=== PATIENT | female | born 1960 | race Caucasian/White ===

== ENCOUNTER 2021-11-15 00:35 | Day surgery (SDC) | payer OTHER, SELFPAY ==
[2021-11-04 14:13] VITALS: BMI 31.3
--- NOTE | 2021-11-14 10:19 | P.PNAN_ITS ---
Anes - Eval Pre Procedure Procedure: Operation Date: 11/15/21 10:15 Proposed Procedures p Colonoscopy - Artemio Meyer MD Date/Time: 11/14/21 10:19 Surgeon: Betsy Pre Op Diagnosis: KERRI, melena Patient Data Age: 61 Gender: F Height: 1.68 m Weight: 88 kg Allergies Allergy/AdvReac Type Severity Reaction Status Date / Time No Known Allergies Allergy Unverified 12/18/12 14:32 Home Medications Medication Instructions Recorded Confirmed Type ferrous sulfate 325 mg PO DAILY 11/04/21 11/04/21 History no labs to view. referral from [place] indicates pt has anemia and pos occult stool Patient hx anesthesia problems: none Family hx anesthesia problems: none Results Review: All pre-operative results and documents have been reviewed as part of the pre-operative evaluation. [facility] Past Medical History Medical History Anemia Cluster headache Social History Social History Smoking status: Never smoker Substance use: never Living arrangements: alone Spiritual care concerns: No Exam Day of Procedure 11/14/21 10:19
--- NOTE | 2021-11-15 09:15 | WPDGICN ---
Assessment and Plan Assessment and plan (1) Occult blood positive stool: Code(s): R19.5 - Other fecal abnormalities Status: Acute Assessment and Plan: Colonoscopy with possible biopsy or polypectomy or cautery or injection of substances. (2) Anemia: Code(s): D64.9 - Anemia, unspecified Status: Acute GI Consult Note Consult date/time: 11/15/21 09:15 HPI: Malka Ac is a 61 year old female Referred because of anemia and blood in her stools-- She has a positive Hemoccult. She has Not seen zofia blood in her stools. A recent hemoglobin in emergency room revealed that her hemoglobin was 9.8. iron levels also were found to be low Review of Systems Review of Systems: All systems reviewed & are unremarkable except as noted in HPI and below PMFSH Past Medical History Medical History Anemia Cluster headache Social History Social History Smoking status: Never smoker Substance use: never Living arrangements: alone Spiritual care concerns: No Meds Home Medications and Allergies Home Medications Medication Instructions Recorded Confirmed Type ferrous sulfate 325 mg PO DAILY 11/04/21 11/04/21 History Allergies Allergy/AdvReac Type Severity Reaction Status Date / Time No Known Allergies Allergy Unverified 11/15/21 09:22 Exam Const: General: alert Orientation/consciousness: patient oriented x3 Resp: Auscultation: clear to auscultation bilaterally Cardio: Rhythm: regular rhythm GI: GI Palp: Yes Soft to palpation and No Tenderness to palpation present (GI) Neuro: General: patient oriented x3
[2021-11-15 09:23] VITALS: BP 129/79; PULSE 80; RESP 16; TEMP 36.6; O2SAT 100
--- NOTE | 2021-11-15 09:26 | WPDANESEFPP ---
Anes - Eval Final PreProcedure Day of Procedure 11/15/21 09:26 Patient weight: obese Heart: regular rate and rhythm Lungs: clear to auscultation and normal air movement Airway: Mallampati scale class II Neurological: alert and oriented Last oral intake: >/= 8 hours ASA classification: II Emergent: no Anesthetic plan: proceed Anesthesia type and monitoring: general GIVS and standard monitoring Results Review: All pre-operative results and documents have been reviewed as part of the pre-operative evaluation. Informed Consent: The patient's anesthetic plan and its attendant risks and benefits were discussed with the patient/family/POA. Questions were solicited and answers provided to the satisfaction of the patient/family/POA.
[2021-11-15] MEDS: LACTATED RINGERS 1,000 ML 150 ML IV CONT (09:35)
[2021-11-15 10:27] VITALS: BP 94/48; PULSE 67; RESP 23; O2SAT 96
[2021-11-15 10:37] VITALS: BP 105/55; PULSE 60; RESP 20; O2SAT 99
[2021-11-15 10:47] VITALS: BP 113/94; PULSE 68; RESP 24; O2SAT 100
== END 2021-11-15 10:52 | disposition home or self-care (01) ==
PROVIDERS: Visit Provider Internal Medicine Gastroenterology
PROC: 0DJD8ZZ Inspection of Lower Intestinal Tract, Via Natural or Artificial Opening Endoscopic (ICD-10-PCS; CPT 45378; principal; 2021-11-15 10:15)
DX: Z12.11 Encounter for screening for malignant neoplasm of colon (principal); C18.2 Malignant neoplasm of ascending colon; K57.30 Diverticulosis of large intestine without perforation or abscess without bleeding; E66.9 Obesity, unspecified; Z68.30 Body mass index [BMI] 30.0-30.9, adult; D64.9 Anemia, unspecified
CPT/HCPCS: 45380; 88305; J2704; J7120

== ENCOUNTER 2021-12-03 11:51 | Outpatient (CLI) | payer OTHER, SELFPAY ==
--- NOTE | 2021-12-03 12:59 | ECG_ITS ---
Measurements Intervals [place] Rate: 72 P: 38 AK: 152 QRS: 2 QRSD: 84 T: 30 QT: 366 QTc: 401 Interpretive Statements SINUS RHYTHM NONSPECIFIC T-WAVE ABNORMALITY LOW VOLTAGE ABNORMAL ECG NO PREVIOUS ECG AVAILABLE FOR COMPARISON Electronically Signed On 12-03-2021 16:28:22 CDT by Francisco Franklin M.D.
[2021-12-03 13:23] LABS: Basophils Absolute Auto 0.1 K/mm3 (0.0-0.1); Basophils Percent Auto 1.7 % (0.2-1.2); Eosinophils Absolute Auto 0.1 K/mm3 (0-0.3); Eosinophils Percent Auto 1.8 % (0-4.4); Hematocrit 32.1 % (37.0-47.0); Hemoglobin 9.7 g/dL (12.0-15.0); Immature Granulocyte Absolute 0.02 K/mm3 (0.00-0.031); Immature Granulocyte Percent A 0.3 % (0-0.5); Lymphocytes Absolute Auto 2.13 K/mm3 (0.9-3.2); Lymphocytes Percent Auto 32.6 % (18.3-44.2); Mean Corpuscular HGB Conc 30.2 g/dl (32-36); Mean Corpuscular Hemoglobin 25.5 pg (26-34); Mean Corpuscular Volume 84.3 fl (80-100); Mean Platelet Volume 11.7 fl (7.4-10.4); Monocytes Absolute Auto 0.5 K/mm3 (0.1-0.6); Monocytes Percent Auto 7.4 % (2.6-8.5); Neutrophils Absolute Auto 3.7 K/mm3 (1.3-6.7); Neutrophils Percent Auto 56.2 % (45.5-73.1); Platelet Count Result 250 k/mm3 (150-375); Red Blood Count 3.81 M/mm3 (4.2-5.4); White Blood Count 6.5 K/mm3 (4.5-10.0)
[2021-12-03 13:29] LABS: Alanine Aminotransferase 14 U/L (4-35); Albumin Level 4.4 g/dL (3.5-5.1); Alkaline Phosphatase 63 U/L (38-126); Anion Gap 7 mmol/L (8-16); Aspartate Amino Transferase 24 U/L (14-36); Bilirubin,Total 0.2 mg/dL (0.2-1.3); Blood Urea Nitrogen 10 mg/dL (7-17); Calcium 8.7 mg/dL (8.4-10.2); Carbon Dioxide 27 mmol/L (22-30); Chloride 107 mmol/L (98-107); Estimated Glomerular Filt Rate > 60; Glucose 126 mg/dL (65-110); Potassium 3.7 mmol/L (3.4-5.0); Sodium 141 mmol/L (137-145)
[2021-12-03 13:58] LABS: Carcinoembryonic Antigen 6.7 ng/mL (0.0-3.0)
== END 2021-12-03 11:52 | disposition home or self-care (01) ==
PROVIDERS: Visit Provider Surgery
DX: Z01.818 Encounter for other preprocedural examination (principal); C18.2 Malignant neoplasm of ascending colon; R94.31 Abnormal electrocardiogram [ECG] [EKG]
CPT/HCPCS: 36415; 80053; 82378; 85025; 86850; 86900; 86901; 93005

== ENCOUNTER 2021-12-08 16:14 | Inpatient (IN) | payer OTHER, SELFPAY ==
--- NOTE | 2021-12-03 12:29 | PC.NURSE ---
Report to the Outpatient Waiting Room, entrance under the green pavilion located off [facility], at time __1000 on date ___12/08/21____. OR Time: __1199 . - You and your visitor will be asked a series of questions to screen for COVID 19 for your protection. - A mask is required within the hospital. Preoperative COVID Testing Requirements: No COVID Test needed if: (proof is required; if not received patient will have Rapid Test prior to entry) - Patient has received COVID Vaccine at least 14 days prior to procedure date or - Patient has positive COVID test result within last 90 days of surgery date. COVID Test needed if above criteria is not met If not COVID vaccinated a COVID test must be conducted within 72 hours of surgery and patient is asked to isolate self from time of testing until procedure. You will go to the [facility] for your COVID testing. The [facility] site is located at the corner of [address] [facility]. You will only be called if COVID results are positive and your surgeon may reschedule your elective surgery date. Patients may have clear liquids (water, carbonated beverages, clear teas, apple juice) until 3 hours prior to surgery with a maximum of 20 ounces. - No food from midnight until time of surgery - Infants may have breast milk until 4 hours before surgery, infant formula 6 hours prior to surgery. - Children will be allowed to drink immediately following surgery. If applicable, please bring a bottle or sippy cup to assist with drinking. Juice, water, soda, and popsicles are readily available. For infants on formula, please bring formula the day of surgery. Pacifiers are allowed. Take the following medications with a SIP of water the morning of surgery: NONE Medications to discontinue per physician ____ALL VITAMINS AND SUPPLEMENTS 3 DAYS PRE OP Date to take last dose__12/04/21 Please no make-up, nail chadian, hairspray, perfume, deodorant, or body powder the day of surgery. No jewelry (including any body piercings) or valuables the day of surgery, leave them at home. Please take a shower or bath the night before, or the morning of, surgery with an antibacterial soap. Wear comfortable, loose fitting clothing. Children are encouraged to wear pajamas. - Jewelry must be removed prior to entering the operating room. Rings and piercings that are not removed may be cut off. - The hospital will not accept responsibility for valuables. - Please leave all valuables, including medications, at home the day of surgery. If you are going home after surgery, a licensed hazmat cdl driver must drive you home. [employer] SHOWER DAY BEFORE SURGERY AND MORNING OF SURGERY - NO public transportation without another adult. - We recommend that an adult stay with you for 24 hours following discharge. - We also recommend that you do not drive, make important decision, drink alcoholic beverages, or take any drugs that were not prescribed by your health care provider for at least 24 hours after your discharge time. For Pediatric surgeries, we recommend two adults accompany the child home (only one inside the building at this time). One visitor will be allowed to accompany the patient into the hospital. Patients visitor will be instructed to remain with patient at all times or leave the building. We will allow the visitor to come back to the postoperative area when patient is ready. Follow any additional instructions given to you from your surgeon. VERBAL AND WRITTEN instructions given to _PATIENT and asked if any additional questions and then verbalized understanding. Patient advised to call surgeon office or pre surgery nurse liaison [phone] if any additional questions.
[2021-12-03 12:58] VITALS: BP 146/80; PULSE 79; RESP 18; TEMP 36.8; O2SAT 99; BMI 30.3
[2021-12-08] VITALS (14 sets, daily range): BP systolic 119–146; BP diastolic 60–90; PULSE 64–88; RESP 11–20; TEMP 36.1–37.2; O2SAT 94–100
[2021-12-08] MEDS: ACETAMINOPHEN 500 MG TABLET 1000 MG PO ×2 (10:33→18:09)
[2021-12-08] MEDS: LACTATED RINGERS 1,000 ML 30 ML IV CONT ×2 (10:49→14:53)
[2021-12-08] MEDS: KETOROLAC 15 MG/ML VIAL (*BKC) IV PUSH (10:50)
--- NOTE | 2021-12-08 11:04 | SUR.PREOP ---
pt informed slight delay in procedure.
--- NOTE | 2021-12-08 11:44 | WPDANESEPPF ---
Anes - Initial Pre Proc Eval Procedure: Operation Date: 12/08/21 12:00 Proposed Procedures p Laparoscopic Hand Assisted Right Hemicolectomy, Possible Open - Mao Coy DO Date/Time: 12/08/21 11:44 Surgeon: Mao Coy DO Pre Op Diagnosis: ascending colon cancer Patient Data Age: 61 Gender: F Height: 1.68 m Weight: 82.9 kg Last Vital Signs Temp 36.8 C 12/08/21 10:09 Pulse 81 12/08/21 10:09 Resp 16 12/08/21 10:09 BP 119/73 12/08/21 10:09 Pulse Ox 100 12/08/21 10:09 Allergies Allergy/AdvReac Type Severity Reaction Status Date / Time No Known Allergies Allergy Verified 12/08/21 10:23 Home Medications Medication Instructions Recorded Confirmed Type ferrous sulfate 325 mg PO DAILY 11/04/21 12/08/21 History cyanocobalamin (vitamin B-12) 1,000 mcg PO WEEKLY 12/03/21 12/08/21 History L.acidophilus-B.bifidum,longum 3 cap PO DAILY 12/08/21 12/08/21 History [Probiotic Colon Support] Venofer amp IV ONCE 12/08/21 History Patient hx anesthesia problems: none Family hx anesthesia problems: none Results Review: All pre-operative results and documents have been reviewed as part of the pre-operative evaluation. [facility] Past Medical History Medical History Anemia Cancer of ascending colon Cluster headache Surgical History Surgical History No pertinent past surgical history S/P tonsillectomy Family History Family History Father Heart attack Unknown Malignant neoplasm of prostate Social History Social History Smoking status: Never smoker Alcohol intake: never Substance use: never Living arrangements: with family Spiritual care concerns: No Anes - Eval Final PreProcedure Day of Procedure 12/08/21 11:44 Patient weight: overweight Heart: regular rate and rhythm Lungs: clear to auscultation Airway: Mallampati scale class II Neurological: alert and oriented Last oral intake: >/= 8 hours ASA classification: III Emergent: no Anesthetic plan: proceed Anesthesia type and monitoring: general ETT and standard monitoring Results Review: All pre-operative results and documents have been reviewed as part of the pre-operative evaluation. Informed Consent: The patient's anesthetic plan and its attendant risks and benefits were discussed with the patient/family/POA. Questions were solicited and answers provided to the satisfaction of the patient/family/POA.
--- NOTE | 2021-12-08 11:56 | WPDHPUPDATE1 ---
History and Physical Update Update Date/Time: 12/08/21 11:56 History and Physical has been reviewed, including an updated exam of the patient. There are NO changes in the patient's condition. Risks, benefits, and alternatives have been discussed and questions answered. Patient agrees to proceed with procedure.
[2021-12-08] MEDS: ceFAZolin 2 GM/D5W 50 ML 2 GM/50 ML BAG IVPB (12:44)
[2021-12-08] MEDS: metroNIDAZOLE 500 MG/ISO 100ML 500 MG/100 ML BAG 100 MG IVPB (12:49)
--- NOTE | 2021-12-08 14:49 | W.PM.PROC2 ---
Procedure Note - Detailed Date of Procedure 12/08/21 Pre-op Diagnosis ascending colon cancer Post-op Diagnosis Same Procedure Performed Hand assisted laparoscopic right hemicolectomy with ileocolic anastomosis Surgeon Mao Coy, DO Anesthesia General and Local (Exparel) Indications This is a 61-year-old woman who presented with a recent finding of ascending colon cancer. She was experiencing some weakness and easy fatigue, and was found to have evidence of iron deficiency anemia. A Hemoccult stool test was positive. She had never had a colonoscopy before. She underwent colonoscopy by Dr. Meyer on 11/15/2021. An ascending colon mass was identified and biopsied. Biopsies showed evidence of adenocarcinoma. She then had a CT chest, abdomen, and pelvis and [facility] and this showed no evidence of metastatic spread. Discussions were made with the patient about treatment options and decision was made to proceed with hand assisted laparoscopic right hemicolectomy, possible open. Findings Hand assisted laparoscopic right hemicolectomy was performed. Upon entering the abdomen laparoscopically, no immediate abnormalities were noted. I was then able to palpate the mass in the ascending colon and there did appear to be some omentum scarred up to the area where the mass was. A right hemicolectomy was performed to adequately resect the area with proximal and distal margins. A high ligation of the ileocolic vessels was performed and a medial to lateral dissection plane was created. The [id number] stapled anastomosis was performed and the anastomosis appeared healthy and viable. The righ colon was then sent to the lab for pathology. Description of Procedure Procedure as well as risks benefits and alternatives were explained to the patient. Written consent was obtained and placed in chart prior to procedure. Patient was brought back to surgical suite. She was placed supine on operating table. Time-out was done to confirm patient procedure. She was then intubated by the anesthesia department. Her abdomen was prepped and draped in sterile fashion using chlorhexidine prep. A 7 centimeter vertical incision was made just superior to the umbilicus using a 15 blade scalpel. Electrocautery was used for hemostasis and for dissection down through Sy's fascia. The linea alba was identified, and incised using electrocautery. Two Renny clamps were used to lift the fascia anteriorly, and the peritoneum was then entered using electrocautery. The abdomen was inspected and no acute abnormalities were noted. The wound protector was placed at this incision, and the GelPort was applied with a 5 millimeter port placed through it. Carbon dioxide insufflation was used to create a pneumoperitoneum. The camera was inserted and the abdominal cavity was inspected. The mass was palpated in the ascending colon, and no other abnormalities were noted. The patient was placed in Trendelenburg position and rotated slightly to the left. A 5 millimeter incision was made in the lower midline and a 5 millimeter trocar was inserted under direct visualization. Another 5 millimeter incision was made in the left lower quadrant, and a 5 millimeter trocar was inserted under direct visualization. A transversus abdominis plane block with Exparel was performed under laparoscopic visualization bilaterally. After carefully inspecting the abdominal cavity, I began my dissection from a medial to lateral direction along the ileocolic pedicle. The cecum was tented anteriorly and laterally and this allowed me to visualize the ileocolic pedicle. The medial side and inferior side of the peritoneum was scored using hook electrocautery and the retroperitoneal plane was entered. Careful dissection was performed using hook electrocautery in this relatively avascular plane. The duodenum was identified and swept posteriorly. I then continued to dissect proximally along the ileocolic pedicle.
[2021-12-08] MEDS: LACTATED RINGERS 1,000 ML 100 ML IV CONT (16:46)
[2021-12-09] MEDS: ACETAMINOPHEN 500 MG TABLET 1000 MG PO ×4 (00:01→17:54)
[2021-12-09] MEDS: LACTATED RINGERS 1,000 ML 100 ML IV CONT (04:00)
[2021-12-09 05:16] VITALS: BP 119/67; PULSE 61; RESP 16; TEMP 36.3; O2SAT 94
[2021-12-09 05:55] LABS: Basophils Percent Auto 0.2 % (0.2-1.2); Hematocrit 29.1 % (37.0-47.0); Hemoglobin 8.8 g/dL (12.0-15.0); Immature Granulocyte Absolute 0.06 K/mm3 (0.00-0.031); Immature Granulocyte Percent A 0.5 % (0-0.5); Lymphocytes Absolute Auto 0.83 K/mm3 (0.9-3.2); Lymphocytes Percent Auto 7.3 % (18.3-44.2); Mean Corpuscular HGB Conc 30.2 g/dl (32-36); Mean Corpuscular Hemoglobin 26.2 pg (26-34); Mean Corpuscular Volume 86.6 fl (80-100); Mean Platelet Volume 12.8 fl (7.4-10.4); Monocytes Absolute Auto 0.6 K/mm3 (0.1-0.6); Neutrophils Absolute Auto 9.9 K/mm3 (1.3-6.7); Platelet Count Result 222 k/mm3 (150-375); Red Blood Count 3.36 M/mm3 (4.2-5.4); Red Cell Distribution Width 17.9 % (11.5-14.5); White Blood Count 11.4 K/mm3 (4.5-10.0)
[2021-12-09 06:03] LABS: Anion Gap 7 mmol/L (8-16); Blood Urea Nitrogen 14 mg/dL (7-17); Calcium 8.6 mg/dL (8.4-10.2); Carbon Dioxide 24 mmol/L (22-30); Chloride 107 mmol/L (98-107); Estimated CRCL calculation 84 ml/min; Estimated Glomerular Filt Rate > 60; Glucose 143 mg/dL (65-110); Potassium 3.9 mmol/L (3.4-5.0); Sodium 138 mmol/L (137-145)
[2021-12-09] MEDS: ACIDOPHILUS/BULGARICUS CHEWABLE TABLET 3 TABLET PO (08:01)
[2021-12-09] MEDS: ENOXAPARIN 40 MG/0.4 ML SYRINGE SUB-Q (08:01)
--- NOTE | 2021-12-09 10:39 | WPDANESPN ---
Anes - Prog Note Post-Op Date/Time: 12/09/21 10:39 Cardiovascular status: normal Respiratory status: normal Airway patency: baseline Mental status: baseline Post-Op hydration status: normal Vital Signs: Last Vital Signs Temp 97.3 F L 12/09/21 05:16 Pulse 61 12/09/21 05:16 Resp 16 12/09/21 05:16 BP 119/67 12/09/21 05:16 Pulse Ox 94 12/09/21 05:16 Pain Score (VAS): 09/20 I/O: Intake & Output 12/08/21 12/09/21 12/09/21 23:59 07:59 15:59 Intake Total 700 1000 Balance 700 1000 Laboratory Tests 12/09/21 05:10 12/09/21 05:10 12/09/21 12/09/21 05:10 05:10 WBC 11.4 H RBC 3.36 L Hgb 8.8 L Hct 29.1 L MCV 86.6 MCH 26.2 MCHC 30.2 L RDW 17.9 H Plt Count 222 MPV 12.8 H Immature Gran % (Auto) 0.5 Neut % (Auto) 87.0 H Lymph % (Auto) 7.[address] [place] % (Auto) 5.0 Eos % (Auto) 0.0 Baso % (Auto) 0.2 Lymph # (Auto) 0.[address] [place] # (Auto) 0.6 Eos # (Auto) 0.0 Baso # (Auto) 0.0 Abs Immat Gran (auto) 0.06 H Absolute Neuts (auto) 9.9 H Absolute Nucleated RBC 0.0 Nucleated RBC % 0.0 Sodium 138 Potassium 3.9 Chloride 107 Carbon Dioxide 24 Anion Gap 7 L BUN 14 Creatinine 0.70 Estim Creat Clear Calc 84 Estimated GFR > 60 Glucose 143 H Calcium 8.6 Post-procedural complaints: none Patient Feedback: Patient satisfied with anesthetic care.
--- NOTE | 2021-12-09 10:52 | PM.PNGS ---
Progress Note: A&P Assessment and Plan (1) Neoplasm of ascending colon: Code(s): D49.0 - Neoplasm of unspecified behavior of digestive system Status: Acute Assessment and Plan: Patient vegan and brought in her own food/drinks from home. Okay to start advancing to full liquids. Stop IV fluids. Encouraged increasing activity, walking in the halls. Pathology pending. Repeat labs tomorrow. Additional Plan I have discussed the patient's case and plan of care with Dr. Coy. Subjective Subjective Date/Time Seen: 12/09/21 10:52 Post Op day: 1 (ALEJANDRO right hemicolectomy) Patient reports: voiding w/o difficulty and afebrile Interval history: Patient seen and examined, chart reviewed. She is primarily complaining of bloating and discomfort from the distention this morning. Not passing much gas but did have a slight amount of liquid stool this morning. Denies nausea or vomiting. Has only walked in the room, but is planning to try and walk the halls this morning. Pain being controlled with acetaminophen. She is tolerating the clear liquids (she is vegan and has brought her own food/drinks). Review of Systems Review of Systems: All systems reviewed & are unremarkable except as noted in HPI and below Exam Const: General: comfortable and no acute distress Orientation/consciousness: patient oriented x3 Resp: Effort & Inspection: normal respiratory effort Auscultation: clear to auscultation bilaterally Cardio: Rate: regular rate Rhythm: regular rhythm GI: Inspection: incision (Abdominal incisions clean and dry) and other (mildly distended) GI Palp: Yes Soft to palpation, Yes Tenderness to palpation present (GI) (incisional) and No Guarding due to palpation present (GI) Auscultation: normal bowel sounds Neuro: General: no focal motor deficits Extrem: General: no calf tenderness and no edema Psych: Insight: Good insight present (Psych) Judgement: Good judgement present (Psych) Objective Data Vital Signs Vital Signs: Vital Signs - 24 hr 12/08/21 14:53 12/08/21 15:00 12/08/21 15:15 Temperature 98.9 F Pulse Rate 84 85 77 Respiratory Rate 11 L 14 12 Blood Pressure 134/80 133/75 133/78 Pulse Oximetry 100 100 100 12/08/21 15:30 12/08/21 15:45 12/08/21 16:00 Temperature Pulse Rate 65 73 77 Respiratory Rate 12 16 20 Blood Pressure 140/78 146/84 H 136/90 Pulse Oximetry 100 97 96 12/08/21 16:10 12/08/21 16:25 12/08/21 16:45 Temperature 97.9 F 97.9 F Pulse Rate 77 72 77 Respiratory Rate 20 16 16 Blood Pressure 141/77 H 140/79 130/76 Pulse Oximetry 95 94 95 12/08/21 17:15 12/08/21 18:15 12/08/21 20:36 Temperature 98.2 F 98.2 F 97.3 F L Pulse Rate 80 88 84 Respiratory Rate 18 18 18 Blood Pressure 121/61 128/79 127/68 Pulse Oximetry 97 96 97 12/08/21 23:58 12/09/21 05:16 Temperature 97 F L 97.3 F L Pulse Rate 64 61 Respiratory Rate 16 16 Blood Pressure 124/60 119/67 Pulse Oximetry 96 94 Intake/Output Intake/Output: Intake & Output 12/06/21 12/07/21 12/08/21 12/09/21 23:59 23:59 23:59 23:59 Intake Total 850 1000 Output Total 200 Balance 650 1000 Meds/Results Medications: Active Medications Generic Name Dose Route Start Last Admin Trade Name Freq PRN Reason Stop Dose Admin Acetaminophen 1,000 mg 12/08/21 18:00 12/09/21 06:26 Acetaminophen 500 Mg Tablet PO 1,000 mg Q6HR HANNA Administration Enoxaparin Sodium 40 mg 12/09/21 09:00 12/09/21 08:01 Enoxaparin 40 Mg/0.4 Ml Syringe SUB-Q 40 mg DAILY HANNA Administration Lactated Ringer's 1,000 mls @ 100 mls/hr 12/08/21 16:14 12/09/21 04:00 Lr - Lactated Ringers Iv IV CONT 100 mls/hr .Q10H HANNA Administration Lactobacillus Acidophilus 3 tablet 12/09/21 09:00 12/09/21 08:01 Acidophilus/Bulgaricus Chewable Tablet PO 01/08/22 08:59 3 tablet DAILY HANNA Administration Morphine Sulfate 2 mg 12/08/21 16:14 Morphine Sulfate (*Crx) 2 Mg/Ml Inj IV PUSH Q2H PRN Júnior
[2021-12-09 12:15] VITALS: BP 127/60; PULSE 62; RESP 20; TEMP 36.3; O2SAT 98
[2021-12-09 17:37] VITALS: BP 123/51; PULSE 71; RESP 20; TEMP 37; O2SAT 97
[2021-12-09 20:00] VITALS: PULSE 63; RESP 16; O2SAT 98
[2021-12-09 21:00] VITALS: BP 132/65; PULSE 63; RESP 16; TEMP 36.7; O2SAT 98
[2021-12-10] MEDS: ACETAMINOPHEN 500 MG TABLET 1000 MG PO ×5 (00:07→23:45)
[2021-12-10 06:00] VITALS: BP 121/66; PULSE 65; RESP 16; TEMP 36.9; O2SAT 96
[2021-12-10 06:07] LABS: Hematocrit 26.9 % (37.0-47.0); Immature Platelet Fraction Pct 11.7 % (0.9-11.2); Mean Corpuscular HGB Conc 29.7 g/dl (32-36); Mean Corpuscular Hemoglobin 26.1 pg (26-34); Mean Corpuscular Volume 87.9 fl (80-100); Mean Platelet Volume 13.6 fl (7.4-10.4); Platelet Count Result 187 k/mm3 (150-375); Red Blood Count 3.06 M/mm3 (4.2-5.4); Red Cell Distribution Width 18.7 % (11.5-14.5); White Blood Count 9.4 K/mm3 (4.5-10.0)
[2021-12-10 06:24] LABS: Anion Gap 3 mmol/L (8-16); Blood Urea Nitrogen 13 mg/dL (7-17); Calcium 8.3 mg/dL (8.4-10.2); Carbon Dioxide 27 mmol/L (22-30); Chloride 109 mmol/L (98-107); Estimated CRCL calculation 75 ml/min; Estimated Glomerular Filt Rate > 60; Glucose 99 mg/dL (65-110); Potassium 3.8 mmol/L (3.4-5.0); Sodium 139 mmol/L (137-145)
[2021-12-10 07:46] LABS: Lymphocytes Absolute Manual 0.84 K/mm3 (1.1-4.5); Monocytes Absolute Manual 0.47 K/mm3 (0.1-0.90); Monocytes Percent Manual 5 % (3-9); Neutrophils Percent Manual 86 % (46-73); Platelet Estimate Adequate (Adequate); Total Cells Counted 100
[2021-12-10 07:47] LABS: Anisocytosis 1+ (NORMAL); Ovalocytes 1+ (NORMAL)
[2021-12-10] MEDS: ACIDOPHILUS/BULGARICUS CHEWABLE TABLET 3 TABLET PO (09:10)
[2021-12-10] MEDS: ENOXAPARIN 40 MG/0.4 ML SYRINGE SUB-Q (09:11)
--- NOTE | 2021-12-10 11:46 | PM.PNGS ---
Progress Note: A&P Assessment and Plan (1) Neoplasm of ascending colon: Code(s): D49.0 - Neoplasm of unspecified behavior of digestive system Status: Acute Assessment and Plan: Final pathology still pending Continue advancing diet and activity as tolerated Will probably discharge tomorrow if continuing to improve (2) Anemia: Qualifiers: Anemia type: iron deficiency Iron deficiency anemia type: chronic blood loss Qualified Code(s): D50.0 - Iron deficiency anemia secondary to blood loss (chronic) Code(s): D64.9 - Anemia, unspecified Status: Acute Assessment and Plan: Iron infusion today. No signs of active bleeding. Subjective Subjective Date/Time Seen: 12/10/21 11:46 Interval history: Bowels moving. Tolerating soft diet. Still having moderate pain but only taking Tylenol. Exam GI: Inspection: non-distended and incision (intact with glue) GI Palp: Yes Soft to palpation and Yes Tenderness to palpation present (GI) (incisional) Auscultation: normal bowel sounds Objective Data Vital Signs Vital Signs: Vital Signs - 24 hr 12/09/21 12:15 12/09/21 17:37 12/09/21 20:00 Temperature 36.3 C L 37.0 C Pulse Rate 62 71 63 Respiratory Rate 20 20 16 Blood Pressure 127/60 123/51 L Pulse Oximetry 98 97 98 12/09/21 21:00 12/10/21 06:00 Temperature 36.7 C 36.9 C Pulse Rate 63 65 Respiratory Rate 16 16 Blood Pressure 132/65 121/66 Pulse Oximetry 98 96 Intake/Output Intake/Output: Intake & Output 12/07/21 12/08/21 12/09/21 12/10/21 23:59 23:59 23:59 23:59 Intake Total 850 3250 250 Output Total 200 1000 350 Balance 650 2250 -100 Meds/Results Medications: Active Medications Generic Name Dose Route Start Last Admin Trade Name Freq PRN Reason Stop Dose Admin Acetaminophen 1,000 mg 12/08/21 18:00 12/10/21 06:05 Acetaminophen 500 Mg Tablet PO 1,000 mg Q6HR HANNA Administration Enoxaparin Sodium 40 mg 12/09/21 09:00 12/10/21 09:11 Enoxaparin 40 Mg/0.4 Ml Syringe SUB-Q 40 mg DAILY HANNA Administration Lactobacillus Acidophilus 3 tablet 12/09/21 09:00 12/10/21 09:10 Acidophilus/Bulgaricus Chewable Tablet PO 01/08/22 08:59 3 tablet DAILY HANNA Administration Morphine Sulfate 2 mg 12/08/21 16:14 Morphine Sulfate (*Crx) 2 Mg/Ml Inj IV PUSH Q2H PRN Pain Rated 4-6 Morphine Sulfate 4 mg 12/08/21 16:14 Morphine Sulfate (*Crx) 4 Mg/Ml Inj IV PUSH Q2H PRN Pain Rated 7-10 Ondansetron HCl 4 mg 12/08/21 16:14 Ondansetron Inj 4 Mg/2 Ml Vial IV PUSH Q4H PRN Nausea And Vomiting Oxycodone HCl 2.5 mg 12/08/21 16:14 Oxycodone Hcl (*Crx) 2.5 Mg Tab Ir PO Q4H PRN Pain Rated 4-6 Oxycodone HCl 5 mg 12/08/21 16:14 Oxycodone Hcl (*Crx) 5 Mg Tab Ir PO Q4H PRN Pain Rated 7-10 Labs Labs: Laboratory Results - last 24 hr 12/10/21 12/10/21 05:11 05:11 WBC 9.4 RBC 3.06 L Hgb 8.0 L Hct 26.9 L MCV 87.9 MCH 26.1 MCHC 29.7 L RDW 18.7 H Plt Count 187 MPV 13.6 H Immature Gran % (Auto) Not Reportable Neut % (Auto) Not Reportable Lymph % (Auto) Not Reportable [place] % (Auto) Not Reportable Eos % (Auto) Not Reportable Baso % (Auto) Not Reportable Lymph # (Auto) Not Reportable [place] # (Auto) Not Reportable Eos # (Auto) Not Reportable Baso # (Auto) Not Reportable Abs Immat Gran (auto) Not Reportable Absolute Neuts (auto) Not Reportable Absolute Nucleated RBC Not Reportable Total Counted 100 Neutrophils % (Manual) 86 H Lymphocytes % (Manual) 9.0 L Monocytes % (Manual) 5 Nucleated RBC % Not Reportable Abs Lymphs (Manual) 0.84 L Abs Monocytes (Manual) 0.47 Platelet Estimate Adequate % Immature Plt Fraction 11.7 H Anisocytosis 1+ Ovalocytes 1+ Sodium 139 Potassium 3.8 Chloride 109 H Carbon Dioxide 27 Anion Gap 3 L BUN 13 Creatinine 0.80 Estim Creat Clear Calc 75 Estimated
[2021-12-10 14:05] VITALS: BP 109/57; PULSE 66; RESP 18; TEMP 36.7; O2SAT 97
[2021-12-10] MEDS: IRON SUCROSE COMPLEX 100 MG in SODIUM CHLORIDE 0.9% IV 50 ML 220 MG IVPB (14:39)
[2021-12-10 20:00] VITALS: PULSE 68; RESP 16; O2SAT 94
[2021-12-10 20:09] VITALS: BP 119/64; PULSE 68; RESP 16; TEMP 36.4; O2SAT 94
[2021-12-11 04:42] VITALS: BP 121/63; PULSE 74; RESP 16; TEMP 36.2; O2SAT 100
[2021-12-11 05:59] LABS: Hemoglobin 8.6 g/dL (12.0-15.0); Mean Corpuscular HGB Conc 29.7 g/dl (32-36); Mean Corpuscular Hemoglobin 26.9 pg (26-34); Mean Corpuscular Volume 90.6 fl (80-100); Mean Platelet Volume 12.7 fl (7.4-10.4); Platelet Count Result 202 k/mm3 (150-375); Red Cell Distribution Width 18.6 % (11.5-14.5); White Blood Count 8.1 K/mm3 (4.5-10.0)
[2021-12-11] MEDS: ACETAMINOPHEN 500 MG TABLET 1000 MG PO ×2 (06:14→12:13)
[2021-12-11 06:15] LABS: Anion Gap 4 mmol/L (8-16); Blood Urea Nitrogen 13 mg/dL (7-17); Calcium 8.3 mg/dL (8.4-10.2); Carbon Dioxide 27 mmol/L (22-30); Chloride 108 mmol/L (98-107); Estimated CRCL calculation 84 ml/min; Estimated Glomerular Filt Rate > 60; Glucose 99 mg/dL (65-110); Potassium 3.6 mmol/L (3.4-5.0); Sodium 139 mmol/L (137-145)
[2021-12-11] MEDS: ACIDOPHILUS/BULGARICUS CHEWABLE TABLET 3 TABLET PO (09:05)
--- NOTE | 2021-12-11 11:53 | PM.DS ---
DS: Admitting Diagnosis Discharge Date 12/11/2021 Admitting Diagnosis Right colon cancer DS: Discharge Diagnosis Discharge Diagnosis (1) Neoplasm of ascending colon: Code(s): D49.0 - Neoplasm of unspecified behavior of digestive system Status: Acute Assessment and Plan: status post hand assisted laparoscopic right colectomy, doing well, continue routine postoperative care, path reviewed, home with p.o. analgesia and Colace, follow up 2 weeks (2) Obesity (BMI 30-39.9): Code(s): E66.9 - Obesity, unspecified Status: Acute Assessment and Plan: lifestyle and dietary modifications (3) Anemia: Qualifiers: Anemia type: iron deficiency Iron deficiency anemia type: chronic blood loss Qualified Code(s): D50.0 - Iron deficiency anemia secondary to blood loss (chronic) Code(s): D64.9 - Anemia, unspecified Status: Acute DS: Summary Hospital Course Reason for hospitalization: right colon cancer Hospital Course: The patient is a 61-year-old female presenting with right colon cancer. The patient underwent hand assisted laparoscopic right colectomy by Dr. Coy on 12/08/2021, please see full operative report for details of that procedure. Postoperative, the patient did well and was transferred to the surgical floor. Over the next few days, the patient has been ambulating well. Her diet has been slowly advanced and at discharge she was tolerating a regular diet. The patient had some bowel function prior to discharge. I also reviewed her pathology with her prior to discharge. The patient will be sent home with p.o. analgesia, Colace and follow-up with Dr. Coy in 2 weeks. Status at Discharge Functional status at discharge: independent ambulation Overall status at discharge: patient is progressing back to baseline Time Spent with Patient Time attestation: Total time spent providing and/or coordinating discharge services: Time spent: Less than 30 minutes Exam Const: General: cooperative, comfortable and no acute distress Nutritional Appearance: overweight Orientation/consciousness: patient oriented x3 Resp: Auscultation: clear to auscultation bilaterally Cardio: Rate: regular rate Rhythm: regular rhythm GI: Inspection: normal to inspection, non-distended and incision GI Palp: Yes Soft to palpation, Yes Tenderness to palpation present (GI), No Guarding due to palpation present (GI) and No Rigid due to palpation DS: Data Data Completed and Pending Completed studies during hospitalization: Pending at discharge 12/08/21 14:05 Surgical [PTH] Routine Labs on day of discharge: Labs from last 24 hours 12/11/21 12/11/21 05:27 05:27 WBC 8.1 RBC 3.20 L Hgb 8.6 L Hct 29.0 L MCV 90.6 MCH 26.9 MCHC 29.7 L RDW 18.6 H Plt Count 202 MPV 12.7 H Sodium 139 Potassium 3.6 Chloride 108 H Carbon Dioxide 27 Anion Gap 4 L BUN 13 Creatinine 0.70 Estim Creat Clear Calc 84 Estimated GFR > 60 Glucose 99 Calcium 8.3 L Discharge Plan Discharge Attending physician on discharge: Mao Coy Discharging Clinician: Mary Turner Anticipated Discharge Date/Time: 12/11/21 11:50 Patient Disposition: Home, Self-Care Activity: may shower and no straining Diet: as tolerated Wound Care Instructions: incision open to air Patient Instructions: Antibiotic Form Stand Alone Forms: General Discharge Information Follow-up/Referrals: Mao Coy DO [Physician] - 2 Weeks Discharge Medications: New hydrocodone-acetaminophen 5-325 mg tablet 1 tablet PO Q6H PRN (Reason: pain) Qty: 20 RF: 0 docusate sodium [Colace] 100 mg capsule 100 mg PO BID Qty: 20 RF: 0 Continued ferrous sulfate 325 mg (65 mg iron) Tablet 325 mg PO DAILY RF: 0 cyanocobalamin (vitamin B-12) 1,000 mcg Tablet 1,000 mcg PO WEEKLY RF: 0 Probiotic Colon Support 240 mg (3 billion cell) Capsule
== END 2021-12-11 12:42 | disposition home or self-care (01) | DRG 331 ==
LOC: ANH3MED 16:15
PROVIDERS: Nurse Practitioner Family; Admitting Provider Surgery; Visit Provider Surgery
PROC: 0DTF4ZZ Resection of Right Large Intestine, Percutaneous Endoscopic Approach (ICD-10-PCS; CPT 44204; principal; 2021-12-08 12:00)
DX: C18.2 Malignant neoplasm of ascending colon (principal); D50.0 Iron deficiency anemia secondary to blood loss (chronic); E66.9 Obesity, unspecified; Z68.31 Body mass index [BMI] 31.0-31.9, adult
CPT/HCPCS: 36415; 80048; 85025; 85027; 85055; 88309; A9270; C9290; J0330; J0690; J1100; J1170; J1650; J1756; J1885; J2250; J2405; J2704; J2710; J3010; J7030; J7120

== ENCOUNTER 2022-09-26 00:07 | Day surgery (SDC) | payer OTHER, SELFPAY ==
--- NOTE | 2022-09-14 10:17 | SUR.PREOP ---
Report to the Outpatient Waiting Room, entrance under the green pavilion located off [facility], at time 0830 on date 09/26/22. Needle Loc Time: 0930 Planned Procedure Time: 1200. Time changes happen often and if your time is changed the preop area will call you the afternoon before. - You and your visitor will be asked to self-screen and do not enter if you have any COVID symptoms. - Only one visitor is requested with a max of two and NO children visitors are allowed at this time. - The patient visitor may be requested to leave or wait in car when not with patient due to distancing restrictions. - A mask is optional within the hospital. Patients may have clear liquids (water, carbonated beverages, clear teas, apple juice) until 3 hours prior to surgery with a maximum of 20 ounces. - No clear liquids after 0730 - No food from midnight until time of surgery - Infants may have breast milk until 4 hours before surgery, infant formula 6 hours prior to surgery. - Children will be allowed to drink immediately following surgery. If applicable, please bring a bottle or sippy cup to assist with drinking. Juice, water, soda, and popsicles are readily available. For infants on formula, please bring formula the day of surgery. Pacifiers are allowed. Medications to discontinue per physician Instructed by Dr Coy to stop [place] 3 09/23/22. Instructed patient to stop vitamins & supplements 3 days before surgery 09/23/22 per Anesthesia Please no make-up, nail surinamese, hairspray, perfume, deodorant, or body powder the day of surgery. No jewelry (including any body piercings) or valuables the day of surgery, leave them at home. Please take a shower or bath the night before, or the morning of, surgery with Hibiclens soap. Wear comfortable, loose fitting clothing. Children are encouraged to wear pajamas. - Jewelry must be removed prior to entering the operating room. Rings and piercings that are not removed may be cut off. - The hospital will not accept responsibility for valuables. - Please leave all valuables, including medications, at home the day of surgery. If you are going home after surgery, a licensed courier delivery driver must drive you home. - NO public transportation without another adult if you receive anesthesia. - We recommend that an adult stay with you for 24 hours following discharge. - We also recommend that you do not drive, make important decision, drink alcoholic beverages, or take any drugs that were not prescribed by your health care provider for at least 24 hours after your discharge time. For Pediatric surgeries, we recommend two adults accompany the child home. Follow any additional instructions given to you from your surgeon. If you or anyone in your household have experienced Covid symptoms in the past week, please notify your surgeon or the nurse liaison at the phone number below for possible testing. Telephone instructions given to Malka Ac and asked if any additional questions and then verbalized understanding. Patient advised to call surgeon office or pre surgery nurse liaison [phone] if any additional questions.
[2022-09-14 10:31] VITALS: BMI 22.6
--- NOTE | ~2022-09-26 | MMUS_ITS ---
EXAMINATION: US breast needle loc RT, MM surgical specimen RT INDICATION: Patient presents for surgical excision of a right breast biopsy marker and fibroadenoma. TECHNIQUE: Patient presents for removal of a right breast fibroadenoma which demonstrated slight incr ease in size on interval six month postbiopsy mammogram. In addition, patient was advised by a holist medicine provider that she should have the biopsy marker removed from her breast. The provider als o advised that she avoid ionizing radiation. Therefore, the patient desires to have the mass and biop sy marker localized by ultrasound. I had an extensive discussion with the patient regarding the limit ations of ultrasound-guided localization of the marker and possibility that the marker, which is not sonographically detected, could remain in the breast. Patient confirmed understanding of the limitati ons and indicated that she preferred to proceed with attempted ultrasound localization rather than ma mmographic localization of the marker. The procedure for a ultrasound -guided needle localization was discussed with the patient's. Risks and benefits were detailed, including risks of bleeding and infe ction. The patient verbalized understanding and agreed to proceed. The time out was performed to verify the patient's name, date of , and site of procedure. The sk in overlying the right breast was prepared in usual fashion. Utilizing ultrasound guidance, a needle was advanced into the right breast. Confirmation of position of the wire was performed with holaoun d. The patient tolerated procedure without immediate complication. A specimen radiograph was performed. FINDINGS: Ultrasound confirmation of the right breast demonstrate a needle with tip adjacent to right breast mass. The right breast mass and biopsy marker are contained within the surgical specimen. IMPRESSION: 1. Successful ultrasound-guided right breast needle localization. Reviewed, dictated and finalized at location A. BALL INSPECTOR IMPRESSION: 1. Successful ultrasound-guided right breast needle localization.
--- NOTE | 2022-09-26 09:40 | SUR.PREOP ---
PT INITIALLY SHOWED UP AT 0830, WE PLACED HER IN ROOM 17, GOING TO ULTRASOUND, PLAN TO RETURN TO PREOP 7.
--- NOTE | 2022-09-26 10:11 | P.PNAN_ITS ---
Anes - Initial Pre Proc Eval Procedure: Operation Date: 09/26/22 12:00 Proposed Procedures p Right Breast Excisional Biopsy with Ultrasound and/or Mammogram Guided Needle Localization - Mao Coy DO Date/Time: 09/26/22 10:11 Surgeon: Mao Coy DO Pre Op Diagnosis: Right Breast Fibroadenoma Patient Data Age: 62 Gender: F Height: 1.68 m Weight: 63.8 kg Allergies Allergy/AdvReac Type Severity Reaction Status Date / Time No Known Allergies Allergy Verified 09/14/22 09:52 Home Medications Medication Instructions Recorded Confirmed Type melatonin 10 mg tablet 40 mg PO QHS 06/07/22 09/14/22 History magnesium malate, chelate 600 mg PO BID 06/17/22 09/14/22 History turmeric 400 mg capsule 800 mg PO TID 06/17/22 09/14/22 History zinc acetate 25 mg (zinc) capsule 25 mg PO BID 06/17/22 09/14/22 History acidophilus 25 million 2 tablet PO TID 09/14/22 09/14/22 History cell-pectin, citrus 100 mg tablet omega-3 fatty acids 2,000 mg PO DAILY 09/14/22 09/14/22 History vitamin A 25,000 unit capsule 25,000 cap PO DAILY 09/14/22 09/14/22 History Patient hx anesthesia problems: none Family hx anesthesia problems: none Results Review: All pre-operative results and documents have been reviewed as part of the pre- operative evaluation. [facility]LY [facility] Past Medical History Medical History (Updated 09/26/22 @ 11:15 by Chito Benavides DO) Anemia Cancer of ascending colon Cluster headache Fungal infection of lung Hypothyroidism Left adrenal mass Perianal fistula Surgical History Surgical History H/O hemicolectomy ALEJANDRO R HEMICOLECTOMY 12/08/21 S/P tonsillectomy Family History Family History Father Heart attack Grandparent Malignant neoplasm of prostate Social History Social History Smoking status: Never smoker Alcohol intake: never Substance use: never Living arrangements: with family Spiritual care concerns: No Anes - Eval Final PreProcedure Day of Procedure 09/26/22 10:11 Patient weight: normal Heart: regular rate and rhythm Lungs: clear to auscultation Airway: Mallampati scale class II Neurological: alert and oriented Last oral intake: >/= 8 hours ASA classification: III Emergent: no Anesthetic plan: proceed Anesthesia type and monitoring: general LMA and standard monitoring Results Review: All pre-operative results and documents have been reviewed as part of the pre- operative evaluation. Informed Consent: The patient's anesthetic plan and its attendant risks and benefits were discussed with the patient/family/POA. Questions were solicited and answers provided to the satisfaction of the patient/family/POA.
[2022-09-26 10:30] VITALS: BP 149/83; PULSE 69; RESP 16; TEMP 36.6; O2SAT 100
--- NOTE | 2022-09-26 11:48 | WPDHPUPDATE1 ---
History and Physical Update Update Date/Time: 09/26/22 11:48 History and Physical has been reviewed, including an updated exam of the patient. There are NO changes in the patient's condition. Risks, benefits, and alternatives have been discussed and questions answered. Patient agrees to proceed with procedure.
--- NOTE | 2022-09-26 11:49 | PM.IMHP ---
H&P: HPI History of Present Illness Date/Time: 09/26/22 11:49 Chief Complaint: abnormal mammogram Narrative: 62 yo woman presents for right breast u/s guided wire localized lumpectomy. She denies any changes since last seen in office. Review of Systems Review of Systems: All systems reviewed & are unremarkable except as noted in HPI and below Constitutional: Constitutional: Denies chills, Denies fever(s), Denies headache(s) and Denies weight loss Eyes: Eyes: Denies change in vision ENT: Denies dizziness, Denies headache(s), Denies neck mass and Denies throat swelling Cardiovascular: Cardiovascular: Denies chest pain, Denies lightheadedness and Denies dyspnea Respiratory: Respiratory: Denies cough, Denies dyspnea and Denies wheezing Gastrointestinal: Gastrointestinal: Denies abdominal pain, Denies change in bowel habits, Denies nausea and Denies vomiting Genitourinary: Genitourinary: Denies hematuria and Denies dysuria Musculoskeletal: Musculoskeletal: Reports as per HPI Integumentary/Breasts: Skin/Breast: Reports as per HPI Neurologic: Denies dizziness and Denies headache(s) Allergic/Immunologic: Allergic/Immunologic: Denies throat swelling and Denies wheezing PMF Past Medical History Medical History (Updated 09/26/22 @ 11:15 by Chito Benavides DO) Anemia Cancer of ascending colon Cluster headache Fungal infection of lung Hypothyroidism Left adrenal mass Perianal fistula Surgical History Surgical History H/O hemicolectomy ALEJANDRO R HEMICOLECTOMY 12/08/21 S/P tonsillectomy Family History Family History Father Heart attack Grandparent Malignant neoplasm of prostate Social History Social History Smoking status: Never smoker Alcohol intake: never Substance use: never Living arrangements: with family Spiritual care concerns: No Meds Home Medications and Allergies Home Medications Medication Instructions Recorded Confirmed Type melatonin 10 mg tablet 40 mg PO QHS 06/07/22 09/14/22 History magnesium malate, chelate 600 mg PO BID 06/17/22 09/14/22 History turmeric 400 mg capsule 800 mg PO TID 06/17/22 09/14/22 History zinc acetate 25 mg (zinc) capsule 25 mg PO BID 06/17/22 09/14/22 History acidophilus 25 million 2 tablet PO TID 09/14/22 09/14/22 History cell-pectin, citrus 100 mg tablet omega-3 fatty acids 2,000 mg PO DAILY 09/14/22 09/14/22 History vitamin A 25,000 unit capsule 25,000 cap PO DAILY 09/14/22 09/14/22 History Allergies Allergy/AdvReac Type Severity Reaction Status Date / Time No Known Allergies Allergy Verified 09/14/22 09:52 Vital Signs Vital Signs - 24 hr 09/26/22 10:30 Temperature 36.6 C Pulse Rate 69 Respiratory Rate 16 Blood Pressure 149/83 H Pulse Oximetry 100 Oxygen Delivery Room Air Exam Const: General: no acute distress and alert Orientation/consciousness: patient oriented x3 HENMT: Head: normocephalic and atraumatic Ears: hearing grossly normal bilaterally Face/Nose/Sinus: Normal nares present Mouth: Yes Normal oral and palatal mucosa present Eyes: Periorbital: periorbital findings normal Sclera: sclerae normal EOM: EOMs intact bilaterally Neck: Neck: normal visual inspection, no lymphadenopathy and trachea midline Chest: Chest palpation & inspection: normal inspection of the chest Resp: Effort & Inspection: normal respiratory effort Auscultation: clear to auscultation bilaterally Cardio: Jugular venous distension: no JVD Rate: regular rate Rhythm: regular rhythm Heart sounds: S1 normal heart sound present and S2 normal heart sound present Peripheral pulses: Peripheral pulses 2+ throughout GI: Inspection: normal to inspection GI Palp: Yes Soft to palpation, No Tenderness to palpation present (GI), No Guarding due to palpation present (GI)
[2022-09-26] MEDS: LACTATED RINGERS 1,000 ML 30 ML IV CONT (12:26)
--- NOTE | 2022-09-26 12:27 | SUR.OPER ---
Right Breast Excisional Biopsy sent per DANIEL Collazo to [facility] at 12:26. Received at 12:30.
[2022-09-26] MEDS: BUPIVACAINE/EPINEPHRINE 0.5% 30 ML VIAL INFILTRATE (12:33)
--- NOTE | 2022-09-26 12:40 | P.OP_ITS ---
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 She subsequently underwent ultrasound-guided core needle biopsy and pathology came back as fibroadenoma with atypical ductal hyperplasia. Discussions were made with the patient about treatment options and decision was made to proceed with ultrasound-guided wire localized right breast excisional biopsy. Patient had expressed her concern preoperatively about not wanting further x-ray exposure and wished to proceed with only ultrasound guidance for the wire placement. This was discussed with Radiology and decision was made to proceed with ultrasound guidance alone, given the possibility that the wire may not be placed directly near the radiopaque clip without confirming with x-ray. Findings Ultrasound-guided wire localized right breast excisional biopsy was performed. Patient had the wire placed ultrasound guidance by Radiology preoperatively. The wire was located in the right lower outer quadrant of the breast. An incision was made directly over the wire and the breast tissue was excised around the wire for pathology. Once the specimen was removed, it was sent to mammography to confirm that the biopsy marker was within the specimen. It was then sent to pathology. Description of Procedure Procedure as well as risks, benefits, and alternatives were discussed with the patient. Written consent was obtained and placed in chart prior to procedure. Patient was brought back to surgical suite. She was placed supine on operating table. Time-out was done to confirm patient and procedure. IV sedation was then administered by the anesthesia department. Her right breast area was pre pped and draped in sterile fashion using Betadine prep and chlorhexidine prep. 0.5% bupivacaine with epinephrine was infiltrated locally around the area for biopsy. A 3 cm curvilinear incision was made directly over the wire using a 15 blade scalpel. Electrocautery was used for hemostasis and for dissection through the subcutaneous tissue. The tissue around the wire was then carefully dissected circumferentially using electrocautery. The breast tissue around the wire was excised with electrocautery. Care was taken to not dislodge the wire or cut through the wire during dissection. The tissue was completely excised and then sent to mammography to confirm the biopsy marker within the specimen. The wound bed was then inspected. Hemostasis appeared adequate no masses or other abnormalities were noted. The deep dermis was then reapproximated using 3-0 Vicryl inverted interrupted sutures. Skin was approximated using 4 Monocryl running subcuticular suture. Exofin glue was then applied on top. The patient was then awakened from anesthesia and transferred to recovery. Estimated Blood Loss 5 Pathology Yes (right breast excisional biopsy) Complications No immediate complications Condition Stable Disposition Same day [facility] Billing Surgery - Charge Forward: Surgery Billing
[2022-09-26 12:47] VITALS: BP 122/71; PULSE 66; RESP 16; O2SAT 100
[2022-09-26 13:10] VITALS: BP 120/67; PULSE 63; RESP 16
[2022-09-26 13:25] VITALS: BP 144/72; PULSE 73; RESP 16
== END 2022-09-26 13:41 | disposition home or self-care (01) ==
PROVIDERS: PCP Family Medicine; Visit Provider Surgery
PROC: (CPT 19125; principal; 2022-09-26 12:00)
DX: D24.1 Benign neoplasm of right breast (principal)
CPT/HCPCS: 19125; 19285; 76098; 88305; C1769; J2250; J2704; J3010; J7120

== ENCOUNTER 2022-12-23 00:13 | Day surgery (SDC) | payer OTHER, SELFPAY ==
[2022-12-09 14:57] VITALS: BMI 22.6
--- NOTE | 2022-12-22 14:06 | PM.HPGS ---
History of Present Illness History of Present Illness Consent: Risks, benefits, and alternatives have been discussed and questions answered. Patient agrees to proceed with procedure. Chief complaint: Diverticulitis Narrative: Malka Ac is a 62 year old female who Was referred for colonoscopy. She was found have an obstructing carcinoma of the ascending colon about 1 year ago. Was resected. All lymph nodes were negative. Review of Systems Review of Systems: All systems reviewed & are unremarkable except as noted in HPI and below PMFSH Past Medical History Medical History Anemia Cancer of ascending colon Cluster headache Fungal infection of lung Hypothyroidism Left adrenal mass Perianal fistula Surgical History Surgical History H/O hemicolectomy ALEJANDRO R HEMICOLECTOMY 12/08/21 S/P tonsillectomy Family History Family History Father Heart attack Grandparent Malignant neoplasm of prostate Social History Social History Smoking status: Never smoker Alcohol intake: never Substance use: never Substance use type: does not use Living arrangements: with family Occupation/Education: retired Spiritual care concerns: No Meds Home Medications and Allergies Home Medications Medication Instructions Recorded Confirmed Type melatonin 10 mg tablet 40 mg PO QHS 06/07/22 12/09/22 History magnesium malate, chelate 600 mg PO BID 06/17/22 12/09/22 History turmeric 400 mg capsule 800 mg PO TID 06/17/22 12/09/22 History zinc acetate 25 mg (zinc) capsule 25 mg PO BID 06/17/22 12/09/22 History acidophilus 25 million 2 tablet PO TID 09/14/22 12/09/22 History cell-pectin, citrus 100 mg tablet omega-3 fatty acids 2,000 mg PO DAILY 09/14/22 12/09/22 History vitamin A 7,500 mcg (25,000 unit) 25,000 cap PO DAILY 09/14/22 12/09/22 History capsule Allergies Allergy/AdvReac Type Severity Reaction Status Date / Time No Known Allergies Allergy Verified 12/23/22 08:33 Exam Resp: Auscultation: clear to auscultation bilaterally Cardio: Rate: regular rate Rhythm: regular rhythm GI: GI Palp: Yes Soft to palpation and No Tenderness to palpation present (GI) Assessment and Plan Assessment and plan (1) History of colon cancer: Code(s): Z85.038 - Personal history of other malignant neoplasm of large intestine Status: Acute Assessment and Plan: Colonoscopy with possible biopsy or polypectomy or cautery or injection of substances.
[2022-12-23 08:34] VITALS: BP 112/72; PULSE 82; RESP 16; TEMP 36.3; O2SAT 100
[2022-12-23] MEDS: LACTATED RINGERS 1,000 ML 150 ML IV CONT (08:42)
--- NOTE | 2022-12-23 08:52 | P.PNAN_ITS ---
Anes - Initial Pre Proc Eval Procedure: Operation Date: 12/23/22 09:30 Proposed Procedures p Colonoscopy - Artemio Meyer MD Date/Time: 12/23/22 08:52 Surgeon: Artemio Meyer MD Pre Op Diagnosis: Diverticulitis Patient Data Age: 62 Gender: F Height: 1.68 m Weight: 63 kg Last Vital Signs Temp 97.3 F L 12/23/22 08:34 Pulse 82 12/23/22 08:34 Resp 16 12/23/22 08:34 BP 112/72 12/23/22 08:34 Pulse Ox 100 12/23/22 08:34 O2 Del Method Room Air 12/23/22 08:34 Allergies Allergy/AdvReac Type Severity Reaction Status Date / Time No Known Allergies Allergy Verified 12/23/22 08:33 Home Medications Medication Instructions Recorded Confirmed Type melatonin 10 mg tablet 40 mg PO QHS 06/07/22 12/09/22 History magnesium malate, chelate 600 mg PO BID 06/17/22 12/09/22 History turmeric 400 mg capsule 800 mg PO TID 06/17/22 12/09/22 History zinc acetate 25 mg (zinc) capsule 25 mg PO BID 06/17/22 12/09/22 History acidophilus 25 million 2 tablet PO TID 09/14/22 12/09/22 History cell-pectin, citrus 100 mg tablet omega-3 fatty acids 2,000 mg PO DAILY 09/14/22 12/09/22 History vitamin A 7,500 mcg (25,000 unit) 25,000 cap PO DAILY 09/14/22 12/09/22 History capsule Patient hx anesthesia problems: none Family hx anesthesia problems: none Results Review: All pre-operative results and documents have been reviewed as part of the pre- operative evaluation. ON LICENSE OF [facility] Past Medical History Medical History Anemia Cancer of ascending colon Cluster headache Fungal infection of lung Hypothyroidism Left adrenal mass Perianal fistula Surgical History Surgical History H/O hemicolectomy ALEJANDRO R HEMICOLECTOMY 12/08/21 S/P tonsillectomy Family History Family History Father Heart attack Grandparent Malignant neoplasm of prostate Social History Social History Smoking status: Never smoker Alcohol intake: never Substance use: never Substance use type: does not use Living arrangements: with family Occupation/Education: retired Spiritual care concerns: No Anes - Eval Final PreProcedure Day of Procedure 12/23/22 08:52 Patient weight: normal Heart: regular rate and rhythm Lungs: clear to auscultation Airway: Mallampati scale class II Neurological: alert and oriented Last oral intake: >/= 8 hours ASA classification: III Emergent: no Anesthetic plan: proceed Anesthesia type and monitoring: general GIVS and standard monitoring Results Review: All pre-operative results and documents have been reviewed as part of the pre- operative evaluation. Informed Consent: The patient's anesthetic plan and its attendant risks and benefits were discussed with the patient/family/POA. Questions were solicited and answers provided to the satisfaction of the patient/family/POA.
[2022-12-23 09:14] VITALS: BP 100/57; PULSE 62; RESP 21; O2SAT 98
[2022-12-23 09:24] VITALS: BP 104/58; PULSE 62; RESP 22; O2SAT 100
[2022-12-23 09:34] VITALS: BP 119/65; PULSE 69; RESP 19; O2SAT 100
== END 2022-12-23 09:42 | disposition home or self-care (01) ==
PROVIDERS: PCP Family Medicine; Visit Provider Internal Medicine Gastroenterology
PROC: 0DJD8ZZ Inspection of Lower Intestinal Tract, Via Natural or Artificial Opening Endoscopic (ICD-10-PCS; CPT 45378; principal; 2022-12-23 09:30)
DX: Z08 Encounter for follow-up examination after completed treatment for malignant neoplasm (principal); K57.30 Diverticulosis of large intestine without perforation or abscess without bleeding; K64.8 Other hemorrhoids; Z85.038 Personal history of other malignant neoplasm of large intestine; Z98.0 Intestinal bypass and anastomosis status; Z90.49 Acquired absence of other specified parts of digestive tract
CPT/HCPCS: 45378; J2704; J7120

== ENCOUNTER 2025-06-06 01:01 | Day surgery (SDC) | payer OTHER, SELFPAY ==
[2025-01-31 15:57] VITALS: BMI 25.0
[2025-05-23 13:13] VITALS: BMI 25.8
--- OUTSIDE RECORDS SUMMARY | 2025-06-06 01:05 | XMS_ITS | Encounter Summary ---
Author Organization [facility] Address [facility] [place] [address] Care Team Providers Care Car Packer Name Role Phone Lorena Jimenez WORK DISTRIBUTOR Primary Care Provider + -[phone] Benita Murray WORK DISTRIBUTOR Primary Care Provider + [phone] Encounter Details Date Type Department Care Team (Latest Contact Info) Description 06/15/2022 [employer] Message Enc [facility] Medical Group Diabetes and Endocrinology - [place] [address] [place] [phone] Theresa Btoello MD [facility] [place] [address] Test for adrenal gland Social History Tobacco Use Types Packs/Day Years Used Date Smoking Tobacco: Never Smokeless Tobacco: Never Comments:non-smoker Alcohol Use Standard Drinks/Week Comments Not Currently 0 (1 standard drink = 0.6 oz pur e alcohol) PHQ-2 Answer Date Recorded PHQ-2 Score - If the patient scores above 3, please move on to questions 3-9 2 06/13/2022 Comments No Sex and Gender Information Value Date Recorded Sex Assigned at Female 04/30/2025 12:50 PM CDT Legal Sex Female 11:13 PM 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 No / Unsure 06/16/2022 2:15 PM CDT documented as of this encounter Plan of Treatment Not on file documented as of this encounter Visit Diagnoses Not on filedocumented in this encounter Care Teams Car Packer Relationship Specialty Start Date End Date Lorena Jimenez NP PCP - General Nurse Practitioner Family 06/29/2012/12 [place] [address] [place] [address] PCP - General Nurse Practitioner Family 01/09/23 documented as of this encounter
--- OUTSIDE RECORDS SUMMARY | 2025-06-06 01:05 | XMS_ITS | Clinical Summary ---
Author Organization [facility] Address [address] [place] [address] Care Team Providers Care Radio Operator Ground Name Role Phone Unavailable Primary Care Provider Unavailabl e Source Comments This disclosure is being made pursuant to the [employer] program and maynot contain all information available regarding this patient.[facility] Allergies No known active allergies Medications No known medications Active Problems Problem Noted Date Diagnosed Date Cluster headaches 08/17/2018 Family History Medical History Relation Name Comments Early Cardiac Heart Disease Father Heart disease Father No Known Problems Mother Relation Name Status Comments Father Mother Alive Social History Tobacco Use Types Packs/Day Years Used Date Smoking Tobacco: Never Smokeless Tobacco: Never Alcohol Use Standard Drinks/Week Comments No 0 (1 standard drink = 0.6 oz pur e alcohol) PHQ-2 Answer Date Recorded PHQ-2 Score 0 06/08/2019 Comments No Sex and Gender Information Value Date Recorded Sex Assigned at Not on file Legal Sex Female 12:59 PM CDT Gender Identity Not on file Sexual Orientation Not on file Last Filed Vital Signs Vital Sign Reading Time Taken Comments Blood Pressure 136/86 08/17/2018 1:10 PM INSURANCE INVESTIGATOR Pulse 84 08/17/2018 1:10 PM INSURANCE INVESTIGATOR Temperature 36.7 C (98.1 F) 08/17/2018 1:10 PM INSURANCE INVESTIGATOR Respiratory Rate 17 08/17/2018 1:10 PM INSURANCE INVESTIGATOR Oxygen Saturation 97% 08/17/2018 1:10 PM INSURANCE INVESTIGATOR Inhaled Oxygen Concentration - - Weight 86.2 kg (190 lb) 08/17/2018 1:10 PM INSURANCE INVESTIGATOR Height 167.6 cm (5' 6) 08/17/2018 1:10 PM INSURANCE INVESTIGATOR Body Mass Index 30.67 08/17/2018 1:10 PM INSURANCE INVESTIGATOR Plan of Treatment Health Maintenance Due Date Last Done Comments Breast Cancer Screening-Mammogram 1960 CT Colonography 1960 Colonoscopy 1960 Colorectal Cancer Screening 1960 Fecal DNA Test 1960 HPV 1960 Lab-Cholesterol Screening 1960 Sigmoidoscopy 1960 Tetanus/Pertussis Vaccine Teen/Adult (1 - Tdap) 1981 FOBT/FIT 1982 Pneumococcal Vaccines 50+ (1 of 1 - PCV) 2012 Zoster (Shingles) Vaccine 50 + (1 of 2) 2012 Cervical Cancer Screening 08/18/2018 Annual Wellness Visit 08/17/2019 08/17/2018 Pap Smear 08/17/2021 08/17/2018 COVID-19 Vaccine (2 - 2024-2 6 season) 2025 12/02/2020 Influenza Vaccine (#1) 2025 RSV Adult (1 - 1-dose 75+ series) 2037 Lab-Hepatitis C Screening Completed 08/17/2018 HIB Vaccine Aged Out No longer eligi ble based on patient's age to complete this topic HPV Vaccine (9-26yo & Shared Decision 27-45yo) Aged Out No longer eligible b ased on patient's age to complete this topic Hepatitis A Vaccine Aged Out No longe r eligible based on patient's age to complete this topic IPV Vaccine Aged Out No longer eligi ble based on patient's age to complete this topic Meningococcal Conjugate Vaccine Aged Out No longer eligible based on patient's age to complete this topic RSV < 20 Months Aged Out No longer el igible based on patient's age to complete this topic Goals Goal Patient Goal Type Associated Problems Recent Progress Patient-Stated? Author Decrease BMI Weight No Renata Aguilar, RAW SCALES OPERATOR Note: Assessment of Goals: Patient understands and recognizes importance to complete goal. Barriers or concerns to completing goal: none To assist in achieving goal, patient will: Be compliant with plan of care Procedures Procedure Name Priority Date/Time Associated Diagnosis Comments HEPATITIS C ANTIBODY Routine 08/17/2018 2:53 PM INSURANCE INVESTIGATOR Need for hepatitis C screening test LIQUID-BASED PAP SMEAR Routine 08/17/2018 12:00 AM INSURANCE INVESTIGATOR Encounter for cervical Pap smear with pelvic exam Cervical cancer screening from Last 3 Months or Most Recently Relevant to Health Maintenance Results * (ABNORMAL) Hepatitis C antibody (08/17/2018 2:53 PM INSURANCE INVESTIGATOR) Hep C Ab REACTIVE( A) NR 08/17/2018 10:18 PM INSURANCE INVESTIGATOR [facility] Comment:Reactive/Equivocal t ests will automatically be reflexed to confirmatory testing. Supplemental testing by Hepatitis C Virus RNA is recommend by the Centers for Disease Control and will confirm the presence of active HCV infection. Serum specimen (specimen) 08/17/2018 2:53 PM INSURANCE INVESTIGATOR 08/17/2018 8:33 PM INSURANCE INVESTIGATOR Comment:COLB#COLLECTED BY: us Renata Aguilar NP LAB BLOOD ORDERABLES Viola hoyos Result [facility] [address] [place], [place] * Liquid Based Pap Smear (08/17/2018 12:00 AM INSURANCE INVESTIGATOR) Specimen from genital system (specimen) CERVIX UTERI STRUCTURE / Unknown 08/17/2018 08/17/2018 Narrative [facility] PATH - 08/21/2018 3:09 PM INSURANCE INVESTIGATOR CASE: [id number] PATIENT: MALKA ALLEN Patient: MALKA ALLEN [facility] [facility] Age: 58 Birthdate: 1960 Sex: F Submitted By: RENATA AGUILAR NP Copies To: Gynecological Cytology Date Collected: 08/17/2018 LMP:x Specimen Source:Cervical Date Received: 08/17/2018 Clinical Information:Menopausal/Postmenopause Reason for Pap Smear:Screening Pap Smear SPECIMEN ADEQUACY: Satisfactory for evaluation; an endocervical /transformation zone component is present. INTERPRETATION: Negative for intraepithelial lesion or malignancy. Cervicovaginal cellular samples are subject to both false negative and false positive findings. This is well documented in the medical literature. The patient's cervicovaginal cellular sample result should be interpreted in the proper clinical context. Correlation with the patient's clinical history and physical findings is recommended. If there is a visible mucosal lesion, a biopsy is recommended regardless of the cytology results Technical and diagnostic services performed at [facility] [employer] [facility], [address] [place], [place] [address]ma[place] [address] Final Diagnosis performed by Yusufsamaria Melendez Electronically signed 08/21/2018 2:01:34PM Procedure Note Provider, Not In System - 08/21/2018 CASE: [id number] PATIENT: MALKA ALLEN Patient: MALKA ALLEN [place] [facility] Age: 58 Birthdate: 1960 Sex: F Submitted By: RENATA AGUILAR NP Copies To: Gynecological Cytology Date Collected: 08/17/2018 LMP:x Specimen Source:Cervical Date Received: 08/17/2018 Clinical Information:Menopausal/Postmenopause Reason for Pap Smear:Screening Pap Smear SPECIMEN ADEQUACY: Satisfactory for evaluation; an endocervical /transformation zone component is present. INTERPRETATION: Negative for intraepithelial lesion or malignancy. Cervicovaginal cellular samples are subject to both false negative and false positive findings. This is well documented in the medical literature. The patient's cervicovaginal cellular sample result should be interpreted in the proper clinical context. Correlation with the patient's clinical history and physical findings is recommended. If there is a visible mucosal lesion, a biopsy is recommended regardless of the cytology results Technical and diagnostic services performed at [facility] [employer] [facility], [address] [place], [place] [address]mauricio Peguero, [place] [address] Final Diagnosis performed by Madelin Melendez Electronically signed 08/21/2018 2:01:34PM us Renata Aguilar NP PATHOLOGY/CYTOLOGY ORDERA BLES Final Result [place], [place] from Last 3 Months or Most Recently Relevant to Health Maintenance Insurance [facility]
--- OUTSIDE RECORDS SUMMARY | 2025-06-06 01:05 | XMS_ITS | Encounter Summary ---
Author Organization [facility] Address [facility] [place] [address] Care Team Providers Care Diamond Blender Name Role Phone Lorena Jimenez WEB SITE ADMINISTRATOR Primary Care Provider + [phone] Benita Murray WEB SITE ADMINISTRATOR Primary Care Provider + [phone] Encounter Details Date Type Department Care Team (Late st Contact Info) Description 06/15/2022 [employer] Message Enc [facility] Medical Group Diabetes and Endocrinology - [place] [address] [place] [address] Theresa Botello MD [facility] [place] [address] TSH high Social History Tobacco Use Types Packs/Day Years [...] PM CDT Legal Sex Female 11:13 PM PEPPER CUTTER Gender Identity Not on file Sexual Orientation [...] on filedocumented in this encounter Care Teams Diamond Blender Relationship Specialty Start Date End Date Lorena Jimenez NP PCP - General Nurse Practitioner Family 06/29/2012/12 [place] [address] [place] [address] PCP - General Nurse Practitioner Family 01/09/23 documented as of this encounter
--- OUTSIDE RECORDS SUMMARY | 2025-06-06 01:06 | XMS_ITS | Encounter Summary ---
Author Organization [facility] Address [facility] [place] [address] Care Team Providers Care Door Operator Name Role Phone Benita Murray NP Primary Care Provider [phone] Encounter Details Date Type Department Care Team (Late st Contact Info) Description 11/21/2023 [employer] Message Enc [facility] [address] [place], [place] [address] [place], [facility] Provider Dr. Nelly Ware Appointment Social History Tobacco Use Types Packs/Day Years Used Date Smoking Tobacco: Never Smokeless Tobacco: Never Comments:non-smoker Alcohol Use Standard Drinks/Week Comments Never 0 (1 standard drink = 0.6 oz pur e alcohol) PHQ-2 Answer Date Recorded Patient Health Questionnaire-2 Score 0 01/24/2023 Comments No Sex and Gender Information Value Date Recorded Sex Assigned at Female 04/30/2025 12:50 PM CDT Legal Sex Female 11:13 PM SINGING TELEGRAM PERFORMER Gender Identity Not on file Sexual Orientation Not on file documented as of this encounter Plan of Treatment Not on file documented as of this encounter Visit Diagnoses Not on filedocumented in this encounter Care Teams Door Operator Relationship Specialty [place] [address] [facility] [address] [place] [address] PCP - General Nurse Practitioner Family 01/09/23 documented as of this encounter
--- OUTSIDE RECORDS SUMMARY | 2025-06-06 01:06 | XMS_ITS | Encounter Summary ---
Author Organization [facility] Address [facility] [place] [address] Care Team Providers Care Water Safety Instructor Name Role Phone Benita Murray NP Primary Care Provider + [phone] Encounter Details Date Type Department Care Team (Late st Contact Info) Description 11/23/2023 [employer] Message Enc [facility] [address] [place], [place] [address] Manuel, [facility] Provider Office visit w/ Ashlyn Mera NP Social History Tobacco Use Types Packs/Day Years [...] PM CDT Legal Sex Female 11:13 PM SWEATER OPERATOR Gender Identity Not on file Sexual Orientation Not on file documented as of this encounter Plan of Treatment Not on file documented as of this encounter Visit Diagnoses Not on filedocumented in this encounter Care Teams Water Safety Instructor Relationship Specialty [place] [address] [address] [place] [address] PCP - General Nurse Practitioner Family 01/09/23 documented as of this encounter
--- OUTSIDE RECORDS SUMMARY | 2025-06-06 01:06 | XMS_ITS ---
Author Organization [facility] Address [facility] [place] [address] Care Team Providers Care Watch Inspector Final Movement Name Role Phone Benita Murray NP Primary Care Provider [phone] Active Problems Problem Noted Date Diagnosed Date Megaloblastic anemia 07/10/2024 Colorectal cancer, stage II (CMS/HCC HHS/HCC) H/O: hypothyroidism 02/02/2023 Toxic effect of mycotoxin 01/25/2023 Status post partial colectomy 01/04/2022 Atypical ductal hyperplasia of right breast 12/11 Iron deficiency 11/26/2021 History of colon cancer 11/25/2021 Cluster headaches 11/25/2021 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 Past Treatment and Therapy Plans Resolved Problems Problem Noted Date Diagnosed Date Resolved Date Weakness 12/16/2021 01/25/2023
--- OUTSIDE RECORDS SUMMARY | 2025-06-06 01:06 | XMS_ITS | Encounter Summary ---
Author Organization [facility] Address [facility] [place] [address] Care Team Providers Care Plywood Factory Worker Name Role Phone Benita Murray AQUATICS SPECIALIST Primary Care Provider [phone] Encounter Details Date Type Department Care Team (Late st Contact Info) Description 07/31/2023 [employer] Message Enc [facility] [address] [place], [place] [address] [facility] Provider Follow Up Appointment Social History Tobacco Use Types Packs/Day [...] PM CDT Legal Sex Female 11:13 PM CIGARETTE INSPECTOR Gender Identity Not on file Sexual Orientation Not on file documented as of this encounter Plan of Treatment Not on file documented as of this encounter Visit Diagnoses Not on filedocumented in this encounter Care Teams Plywood Factory Worker Relationship Specialty [place] [address] [place] [address] PCP - General Nurse Practitioner Family 01/09/23 documented as of this encounter
--- OUTSIDE RECORDS SUMMARY | 2025-06-06 01:06 | XMS_ITS | Encounter Summary ---
Author Organization [facility] Address [facility] [place] [address] Care Team Providers Care Statistical Methods Teacher Name Role Phone Benita Murray BOX PRINTER Primary Care Provider [phone] Encounter Details Date Type Department Care Team (Late st Contact Info) Description 04/24/2023 [employer] Message Enc [facility] [address] [place], [place] [address] [place], [facility] Provider Further imaging Scans Social History Tobacco Use Types Packs/Day Years [...] PM CDT Legal Sex Female 11:13 PM SENIOR RESEARCH PROJECT MANAGER Gender Identity Not on file Sexual Orientation Not on file documented as of this encounter Plan of Treatment Not on file documented as of this encounter Visit Diagnoses Not on filedocumented in this encounter Care Teams Statistical Methods Teacher Relationship Specialty [place] [address] [place] [address] PCP - General Nurse Practitioner Family 01/09/23 documented as of this encounter
--- OUTSIDE RECORDS SUMMARY | 2025-06-06 01:06 | XMS_ITS | Clinical Summary ---
Author Organization [facility] Address [facility] [place] [address] Care Team Providers Care Rubbish Collector Name Role Phone Benita Murray NP Primary Care Provider + [phone] Medications NON FORMULARYIndic ations:SUPPLEM ENTS Take by mouth daily. Indications: SUPPLEMENTS 50 DIFFERENT SUPPLEMENTS Active Pyridoxine HCl (B-6) 100 MG TabIndications :IM INJECTION TWICE A WEEK Inject as directed 2 (two) times a week. Indications: IM INJECTION TWICE A WEEK TWICE WEEKLY INJECTION Active B-D 3CC LUER-EB SYR 22GX1 22G X 1 3 ML Misc see administration instructions. 2 Active BD DISP NEEDLES 27G X 1/2 Misc see administration instructions. 3 Active cyanocobalamin (B-12) 1000 MCG/ML injectionIndic ations:IM INJECTION TWICE WEEKLY Inject into the muscle 2 (two) times a week. 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 Resolved Problems Problem Noted Date Diagnosed Date Resolved Date Weakness 12/16/2021 01/25/2023 Encounters Date Type Department Care Team Description 05/14/2025 Results Follow-Up [facility] Family & Internal Medicine [facility] [address] [place] [address] Benita Murray NP US THYROID 05/09/2025 8:59 AM CDT - 05/09/2025 11:59 PM CDT Hospital Encounter [facility] - Laboratory [address], [place] [address] Alex Jerez MD Discharge Disposition: Home or Self Care (Routine Discharge) 05/09/2025 Travel 04/30/2025 12:50 PM CDT - 04/30/2025 11:59 PM CDT Hospital Encounter [address] [place] [address] Benita Murray NP Discharge Disposition: Home or Self Care (Routine Discharge) 04/30/2025 Travel 04/21/2025 MyChart Message Enc [facility] Family [facility] Internal Medicine [facility] [address] [place] [address] Benita Murray NP Thyroid Ultra sound 03/20/2025 7:52 AM CDT - 03/20/2025 11:59 PM CDT Hospital Encounter [facility] - [facility] [address] [place] [address] Alex Jerez MD Discharge Disposition: Home or Self Care (Routine Discharge) 03/20/2025 Travel 03/07/2025 10:35 AM CDT - 03/07/2025 11:59 PM CDT Hospital Encounter [facility] - [facility] [address] [place] [address] Nelly Ware MD Discharge Disposition: Home or Self Care (Routine Discharge) 03/07/2025 Travel from Last 3 Months Immunizations Immunization Administration Dates Next Due Hepatitis A (Havrix [address].U) 10/24/2003,2002,10/09/2002 PFIZER COVID-19 (ORIGINAL FO RMULATION, PURPLE CAP) mRNA, LNP-S, PF, 30 MCG/0.3 ML DOSE 08/17/2021,11/12/2020 Family History Medical History Relation Comments Early Father Heart Disease Father Relation Status Comments Father Mother Alive Social History Tobacco Use Types Packs/Day Years Used Date Smoking Tobacco: Never Smokeless Tobacco: Never Tobacco Cessation:Counseling Given: Not Answered Comments:non-smoker Alcohol Use Standard Drinks/Week Comments Never 0 (1 standard drink = 0.6 oz pur e alcohol) PHQ-2 Answer Date Recorded Patient Health Questionnaire-2 Score 0 01/24/2023 Comments No Sex and Gender Information Value Date Recorded Sex Assigned at Female 04/30/2025 12:50 PM CDT Legal Sex Female 11:13 PM RN DIABETES Gender Identity Not on file Sexual Orientation Not on file Last Filed Vital Signs Vital Sign Reading Time Taken Comments Blood Pressure 113/83 08/05/2024 2:10 PM RN DIABETES Pulse 73 08/05/2024 2:10 PM RN DIABETES Temperature 36.5 C (97.7 F) 08/05/2024 2:10 PM RN DIABETES Respiratory Rate 16 08/05/2024 2:10 PM RN DIABETES Oxygen Saturation 98% 04/24/2024 2:25 PM CDT Inhaled Oxygen Concentration - - Weight 71.8 kg (158 lb 3.2 oz) 08/05/2024 2:10 P M RN DIABETES Height 167.6 cm (5' 6) 08/05/2024 2:10 PM RN DIABETES Body Mass Index 25.53 08/05/2024 2:10 PM RN DIABETES Plan of Treatment Health Maintenance Due Date Last Done Comments Annual Physical 1965 DTaP, Tdap and Td Vaccines ( 1 - Tdap) 1981 Pneumococcal Vaccine: 50+ Years (1 of 1 - PCV) 2012 Zoster Vaccines (1 of 2) 2012 Mammogram Screening 06/02/2024 06/02/2022, 11/30/2021, 11/24/2021 PHQ-2 (Physician [place]) 09/11/2024 Cervical Cancer Screening Pa p Smear (Age 30 to 64) Every 3 Years 01/04/2025 01/04/2022, 08/17/2018 COVID-19 Vaccine (4 - 2024-2 6 season) 2025 08/17/2021, 12/02/2020, 11/12/2020 Cervical Cancer Screening Pa p with HPV Testing (Age 30 to 64) Every 5 Years 01/04/2027 01/04/2022, 01/04/2022 Cervical Cancer Screening with HPV 01/04/2027 RSV Immunization or 60+ Years (1 - 1-dose 75+ series) 2037 Hepatitis C Completed 10/25/2021, 08/17/2018 Colorectal Cancer Screening Colonoscopy (10 Years) Discontinued 12/23/2022, 11/15/2021, 11/15/2021 Colorectal Cancer Screening FIT/FOBT (1 Year) Discontinued 04/20/2023, 11/02/2021 Meningococcal B Vaccine Aged Out No l onger eligible based on patient's age to complete this topic Meningococcal Vaccine Aged Out No abiola ada eligible based on patient's age to complete this topic RSV Immunizations Under 20 Months Aged Out No longer eligible based on patient's age to complete this topic Procedures Procedure Name Priority Date/Time Associated Diagnosis Comments FIBRINOGEN Routine 05/09/2025 9:13 AM CDT Malignant tumor of ascending colon (CMS/HCC HHS/HCC) SED RATE, ERYTHROCYTE (ESR) Routine 05/09/2025 9:13 AM CDT Malignant tumor of ascending colon (CMS/HCC HHS/HCC) LDH, LACTATE DEHYDROGENASE Routine 05/09/2025 9:13 AM CDT Malignant tumor of ascending colon (CMS/HCC HHS/HCC) C-REACTIVE PROTEIN, HIGH SENSI Routine 05/09/2025 9:13 AM CDT Malignant tumor of ascending colon (CMS/HCC HHS/HCC) COMPREHENSIVE METABOLIC PANEL Routine 05/09/2025 9:13 AM CDT Malignant tumor of ascending colon (CMS/HCC HHS/HCC) CBC W/DIFF AUTOMATED Routine 05/09/2025 9:13 AM CDT Malignant tumor of ascending colon (CMS/HCC HHS/HCC) THYROXINE, FREE (FT4) Routine 05/09/2025 9:13 AM CDT Malignant tumor of ascending colon (CMS/HCC HHS/HCC) FREE T3 Routine 05/09/2025 9:13 AM CDT Malignant tumor of ascending colon (CMS/HCC HHS/HCC) THYROID STIM HORMONE TSH Routine 025 9:13 AM CDT Malignant tumor of ascending colon (CMS/HCC HHS/HCC) US THYROID Routine 04/30/2025 1:27 PM CDT Thyroid nodule FERRITIN Routine 03/20/2025 7:59 AM CDT Malignant tumor of ascending colon (CMS/HCC HHS/HCC) IRON SAT PANEL (IRON,IBC,%SAT) Routine 03/20/2025 7:59 AM CDT Malignant tumor of ascending colon (CMS/HCC HHS/HCC) CORTISOL, TOTAL Routine 03/20/2025 7:59 AM CDT Malignant tumor of ascending colon (CMS/HCC HHS/HCC) CARCINOEMBRYONIC ANTIGEN Routine 025 7:59 AM CDT Malignant tumor of ascending colon (CMS/HCC HHS/HCC) SED RATE, ERYTHROCYTE (ESR) Routine 03/20/2025 7:59 AM CDT Malignant tumor of ascending colon (CMS/HCC HHS/HCC) LDH, LACTATE DEHYDROGENASE Routine 03/20/2025 7:59 AM CDT Malignant tumor of ascending colon (CMS/HCC HHS/HCC) C-REACTIVE PROTEIN, HIGH SENSI Routine 03/20/2025 7:59 AM CDT Malignant tumor of ascending colon (CMS/HCC HHS/HCC) COMPREHENSIVE METABOLIC PANEL Routine 03/20/2025 7:59 AM CDT Malignant tumor of ascending colon (CMS/HCC HHS/HCC) CBC W/DIFF AUTOMATED Routine 03/20/2025 7:59 AM CDT Malignant tumor of ascending colon (CMS/HCC HHS/HCC) FREE T3 Routine 03/20/2025 7:59 AM CDT Malignant tumor of ascending colon (CMS/HCC HHS/HCC) THYROXINE, FREE (FT4) Routine 03/20/2025 7:59 AM CDT Malignant tumor of ascending colon (CMS/HCC HHS/HCC) THYROID STIM HORMONE TSH Routine 025 7:59 AM CDT Malignant tumor of ascending colon (CMS/HCC HHS/HCC) CBC W/DIFF AUTOMATED Routine 03/07/2025 10:49 AM CDT Colorectal cancer, stage II (CMS/HCC HHS/HCC) COMPREHENSIVE METABOLIC PANEL Routine 03/07/2025 10:49 AM CDT Colorectal cancer, stage II (CMS/HCC HHS/HCC) CARCINOEMBRYONIC ANTIGEN Routine 025 10:49 AM CDT Colorectal cancer, stage II (CMS/HCC HHS/HCC) OCCULT BLOOD, FECES,IMMUNO Routine 04/20/2023 10:23 AM CDT Iron deficiency anemia secondary to inadequate dietary iron intake COLONOSCOPY GENERIC (SCAN ORDER) 12/23/2022 MG DIAG W CASSANDRA RT DIGI Routine 2:33 PM CDT Atypical ductal hyperplasia of right breast HPV GENOTYPES 16, 18/45 Routine 01/05/20 12:00 PM CDT CYTOPATH CERV/VAG THIN LAYER Routine 01/04/2022 8:15 AM CDT HEPATITIS C ANTIBODY Routine 10/25/2021 11:45 AM RN DIABETES Need for hepatitis C screening test from Last 3 Months or Most Recently Relevant to Health Maintenance Results * FREE T3 (TRIIODOTHYRONINE FREE) (05/09/2025 9:13 AM CDT) Only the most recent of2 resultswithin the time period is included. FREE T3 2.9 2.2 - 3.9 PG/ML 05/09/2025 10:33 AM CDT [facility] 05/09/2025 9:13 AM CDT Alex Jerez MD LABORATORY Final Resu lt Performing Organization Address City/[facility] Co de Phone Number [facility] [address] [place] [address], [place] [phone] * SED RATE, ERYTHROCYTE (ESR,WSR) (05/09/2025 9:13 AM CDT) Only the most recent of2 resultswithin the time period is included. ESR <1 0 - 20 MM/HR 05/09/2025 9:59 AM CDT [facility] Comment:RESULTS CONFIRMED-TE ST REPEATED 05/09/2025 9:13 AM CDT Alex Jerez MD LABORATORY Final Resu lt Performing Organization Address City/[facility] Co de Phone Number [facility] [address] [place] [address], [place] [phone] * (ABNORMAL) COMPREHENSIVE METABOLIC PANEL (05/09/2025 9:13 AM CDT) Only the most recent of3 resultswithin the time period is included. SODIUM S/P/B 139 136 - 145 MMOL/L 05/09/2025 10:33 AM CDT [facility] POTASSIUM S/P/B 4.2 3.5 - 5.1 MMOL/L 05/09/2025 10:33 AM CDT [facility] CHLORIDE S/P/B 107 97 - 115 MMOL/L 05/09/2025 10:33 AM CDT [facility] CO2 28.3 21.0 - 32.0 MMOL/L 05/09/2025 10:33 AM [facility] GLUCOSE 105 74 - 106 MG/DL 05/09/2025 10:33 AM [facility] BUN 14 7 - 18 MG/DL 05/09/2025 10:33 AM [facility] CREATININE S/P/B 0.96 0.55 - 1.02 MG/DL 05/09/2025 10:33 AM [facility] CALCIUM S/P/B 9.1 8.5 - 10.1 MG/DL 05/09/2025 10:33 AM [facility] BILIRUBIN TOTAL S/P/B 0.5 0.2 - 1.0 MG/DL 05/09/2025 10:33 AM [facility] ALKALINE PHOSPHATASE S/P/B 70 50 - 130 U/L 05/09/2025 10:33 AM [facility] AST 14(L) 15 - 37 U/L 05/09/2025 10:33 AM [facility] ALT 18 13 - 56 U/L 05/09/2025 10:33 AM [facility] TOTAL PROTEIN S/P/B 7.0 6.4 - 8.2 G/DL 05/09/2025 10:33 AM [facility] ALBUMIN S/P/B 3.9 3.4 - 5.0 G/DL 05/09/2025 10:33 AM [facility] ANION GAP 3.7 2.0 - 10.0 MMOL/L 05/09/2025 10:33 AM [facility] OSMOLALITY (CALC) 289 MOSM/KG 025 10:33 AM [facility] Comment:REFERENCE RANGE NOT ESTABLISHED GFR ESTIMATE 67(L) >90 ML/MIN/1. 73 M2 05/09/2025 10:33 AM [facility] GFR NOTES GFR REFERENCE S: 05/09/2025 10:33 AM CDT [facility] Comment: THE ESTIMATED GFR IS CALCULATED USING THE 2020 CKD-EPI EQUATION. THE FOLLOWING CATEGORIES FOR GRADING RENAL FUNCTION ARE RECOMMENDED BY THE INTERNATIONAL SOCIETY OF NEPHROLOGY (KDIGO 2012 CLINICAL PRACTICE GUIDELINE). G1,NORMAL OR HIGH: >89 ml/min/1.73 m2 G2,MILDLY DECREASED: 60-89 ml/min/1.73 m2 G3A,MILDLY TO MODERATELY DECREASED: 45-59 ml/min/1.73 m2 G3B,MODERATELY TO SEVERELY DECREASED: 30-44 ml/min/1.73 m2 G4,SEVERELY DECREASED: 15-29 ml/min/1.73 m2 G5,KIDNEY FAILURE: <15 ml/min/1.73 m2 05/09/2025 9:13 AM CDT Alex Jerez MD LABORATORY Final Resu lt Performing Organization Address City/[facility]/ZIP Co de Phone Number [facility] [address] [place] [address], [phone] * LDH, LACTATE DEHYDROGENASE (05/09/2025 9:13 AM CDT) Only the most recent of2 resultswithin the time period is included. LDH 158 84 - 246 UNITS/L 05/09/2025 10:33 AM CDT [facility] 05/09/2025 9:13 AM CDT Alex Jerez MD LABORATORY Final Resu lt Performing Organization Address City/[facility]/ZIP Co de Phone Number [facility] [address] [place] [address], [phone] * FIBRINOGEN (05/09/2025 9:13 AM CDT) FIBRINOGEN 225 200 - 393 MG/DL 05/09/2025 9:45 AM CDT [facility] 05/09/2025 9:13 AM CDT Alex Jerez MD LABORATORY Final Resu lt Performing Organization Address [facility] Co de Phone Number [facility] [address] [place] [address], [phone] * C-REACTIVE PROTEIN, HIGH SENSI (05/09/2025 9:13 AM CDT) Only the most recent of2 resultswithin the time period is included. HS-CRP 0.06 mg/dL 05/09/2025 10:27 AM CDT [facility] Comment:LOWER RISK: <0.20 mg /dL 05/09/2025 9:13 AM CDT Alex Jerez MD LABORATORY Final Resu lt Performing Organization Address [facility] de Phone Number [facility] [address] [place] [address], [place] [phone] * (ABNORMAL) CBC W/DIFF AUTOMATED (05/09/2025 9:13 AM CDT) Only the most recent of3 resultswithin the time period is included. WBC 5.06 4.00 - 10.80 x10'3/uL 05/09/2025 9:31 AM CDT [facility] RBC 4.26 4.10 - 5.40 x10'6/uL 05/09/2025 9:31 AM CDT [facility] HGB 13.5 12.0 - 16.0 G/DL 05/09/2025 9:31 AM CDT [facility] HCT 40.7 36.0 - 47.0 % 05/09/2025 9:31 AM CDT [facility] MCV 95.5 78.0 - 100.0 FL 05/09/2025 9:31 AM CDT [facility] MCH 31.7(H) 27.0 - 31.0 PG 05/09/2025 9:31 AM CDT [facility] MCHC 33.2 33.0 - 36.0 G/DL 05/09/2025 9:31 AM CDT [facility] RDW 12.1 11.5 - 14.5 % 05/09/2025 9:31 AM CDT [facility] PLT 179 150 - 350 x10'3/uL 05/09/2025 9:31 AM CDT [facility] MPV 11.5(H) 7.4 - 10.4 FL 05/09/2025 9:31 AM CDT [facility] DIFFERENTIAL TYPE AUTOMATED DIFFERENTIAL 05/09/2025 9:31 AM CDT [facility] SEG NEUTROPHILS 49.3 % 9:31 AM CDT [facility] LYMPHOCYTES 37.4 % 05/09/2025 9:31 AM CDT [facility] MONOCYTES 9.1 % 05/09/2025 9:31 AM CDT [facility] EOSINOPHILS 2.6 % 05/09/2025 9:31 AM CDT [facility] BASOPHILS 1.6 % 05/09/2025 9:31 AM CDT [facility] IMMATURE GRANS % 0.0 % 05/09/20 9:31 AM CDT [facility] ABS. NEUTROPHILS 2.50 1.60 - 8.30 x10'3/uL 05/09/2025 9:31 AM CDT [facility] ABS. LYMPHOCYTES 1.89 0.80 - 4.70 x10'3/uL 05/09/2025 9:31 AM CDT [facility] ABS. MONOCYTES 0.46 0.00 - 1.50 x10'3/uL 05/09/2025 9:31 AM CDT [facility] ABS. EOSINOPHILS 0.13 0.00 - 0.40 x10'3/uL 05/09/2025 9:31 AM CDT [facility] ABS. BASOPHILS 0.08 0.00 - 0.20 x10'3/uL 05/09/2025 9:31 AM CDT [facility] ABS. IMMATURE GRANULOCYTES 0.00 0.00 - 0.03 x10'3/uL 05/09/2025 9:31 AM CDT [facility] ABS. NUCLEATED RBC'S 0.00 0.00 - 0.01 x10'3/uL 05/09/2025 9:31 AM CDT [facility] NRBC % 0.0 % 05/09/2025 9:31 AM CDT [facility] 05/09/2025 9:13 AM CDT Alex Jerez MD LABORATORY Final Resu lt Performing Organization Address City/[facility] Co de Phone Number [facility] [address] [place] [address], [phone] * THYROXINE, FREE (FT4) (05/09/2025 9:13 AM CDT) Only the most recent of2 resultswithin the time period is included. FREE T4 0.77 0.76 - 1.46 NG/DL 05/09/2025 10:33 AM CDT [facility] 05/09/2025 9:13 AM CDT Alex Jerez MD LABORATORY Final Resu lt Performing Organization Address [facility]/ZIP Co de Phone Number [facility] [address] [place] [id number], [phone] * THYROID STIM HORMONE TSH (05/09/2025 9:13 AM CDT) Only the most recent of2 resultswithin the time period is included. TSH 3.670 0.358 - 3.740 uIU/ML 05/09/2025 10:33 AM CDT [facility] Comment: ASSAY PERFORMED BY CHEMILUMINESCENCE METHODOLOGY USING SIEMENS [employer] [place] REAGENT. PATIENT RESULTS DETERMINED BY ASSAYS USING DIFFERENT MANUFACTURERS FOR METHODS MAY NOT BE COMPARABLE. 05/09/2025 9:13 AM CDT us Alex Jerez MD LABORATORY Final Resu lt [facility] [address] [place] [address], [phone] * US THYROID (04/30/2025 1:27 PM CDT) Anatomical Region Laterality Modality Neck Ultrasound 05/08/2025 12:1 8 PM CDT Impressions 05/08/2025 12:26 PM CDT Impression: Stable exam. No sonographic findings indicative of continued follow-up imaging. Referred By: BENITA MURRAY Interpreted By: Francisco Kwan MD, 05/08/2025 12:18 PM Narrative 05/08/2025 12:26 PM CDT [facility] [address] [place], [place] [address] Examination: Thyroid ultrasound. Clinical Information: Thyroid nodules. Comparison: Ultrasound 11/21/2023, 11/28/2022 and 05/24/2022. Technique: Multiple grayscale and color Doppler images of the thyroid were obtained. Findings: Right Thyroid Lobe: Size: 3.9 x 1.6 x 2.0 cm. Echotexture: Heterogeneous and hypervascular, unchanged. Nodule(s): Unchanged nodular regions are redemonstrated. Left Thyroid Lobe: Size: 3.6 x 1.5 x 1.6 cm. Echotexture: Heterogeneous and hypervascular, unchanged. Nodule(s): Unchanged nodular region demonstrated. Isthmus: 3.5 mm No cervical lymphadenopathy. Procedure Note Francisco Kwan MD - 05/08/2025 [facility] [address] [place], [place] [address] Examination: Thyroid ultrasound. Clinical Information: Thyroid nodules. Comparison: Ultrasound 11/21/2023, 11/28/2022 and 05/24/2022. Technique: Multiple grayscale and color Doppler images of the thyroid wereobtained. Findings: Right Thyroid Lobe: Size: 3.9 x 1.6 x 2.0 cm. Echotexture: Heterogeneous and hypervascular, unchanged. Nodule(s): Unchanged nodular regions are redemonstrated. Left Thyroid Lobe: Size: 3.6 x 1.5 x 1.6 cm. Echotexture: Heterogeneous and hypervascular, unchanged. Nodule(s): Unchanged nodular region demonstrated. Isthmus: 3.5 mm No cervical lymphadenopathy. Impression: Stable exam. No sonographic findings indicative of continued follow-upimaging. Referred By: BENITA MURRAY Interpreted By: Francisco Kwan MD, 05/08/2025 12:18 PM Benita Murray MIXER ATTENDANT ULTRASOUND Final Result * IRON SATURATION PANEL (FE,IBC,%SAT) (03/20/2025 7:59 AM CDT) IRON 100 50 - 170 MCG/DL 03/20/2025 8:49 AM CDT [facility] IRON BINDING CAPACITY 395 250 - 450 MCG/DL 03/20/2025 8:49 AM CDT [facility] IRON SATURATION 25 % 8:49 AM CDT [facility] Comment:REFERENCE RANGE NOT ESTABLISHED 03/20/2025 7:59 AM CDT Alex Jerez MD LABORATORY Final Resu lt [facility] [address] [place] [id number], [phone] * CORTISOL, TOTAL (03/20/2025 7:59 AM CDT) CORTISOL 14.2 mcg/dL 03/20/2025 9:12 AM CDT [facility] Comment: A.M. SPECIMENS: 5.3 TO 22.5 mcg/dL P.M. SPECIMENS: 3.4 TO 16.8 mcg/dL ASSAY PERFORMED BY CHEMILUMINESCENCE METHODOLOGY USING SIEMENS [employer] REAGENT. PATIENT RESULTS DETERMINED BY ASSAYS USING DIFFERENT MANUFACTURERS FOR METHODS MAY NOT BE COMPARABLE. 03/20/2025 7:59 AM CDT Alex Jerez MD LABORATORY Final Resu lt Performing Organization Address [facility] de Phone Number [facility] [address] [place] [address], [phone] * CARCINOEMBRYONIC ANTIGEN (03/20/2025 7:59 AM CDT) Only the most recent of2 resultswithin the time period is included. Pathologist [facility] CEA 0.4 0.0 - 5.0 NG/ML 03/20/2025 8:49 AM CDT [facility] Comment: ASSAY PERFORMED BY CHEMILUMINESCENCE METHODOLOGY USING SIEMENS [employer] [place] REAGENT. PATIENT RESULTS DETERMINED BY ASSAYS USING DIFFERENT MANUFACTURERS FOR METHODS MAY NOT BE COMPARABLE. 03/20/2025 7:59 AM CDT Alex Jerez MD LABORATORY Final Resu lt Performing Organization Address [facility] Co de Phone Number [facility] [address] [place] [address], [phone] * FERRITIN (03/20/2025 7:59 AM CDT) FERRITIN 26.1 8.0 - 252.0 NG/ML 03/20/2025 8:49 AM CDT [facility] 03/20/2025 7:59 AM CDT Alex Jerez MD LABORATORY Final Resu lt [facility] [address] [place] [address], [place] [phone] * OCCULT BLOOD, FECES, SCREENING (LAB PERFORMED FIT TEST) (04/20/2023 10:23 AM CDT) OCCULT BLOOD SCREEN NEGATIVE 04/24/2023 10:42 AM CDT [facility] Comment: THREE VIALS SUBMITTED WITH THE SAME DATE OF COLLECTION. ALL THREE TESTED NEGATIVE. COLLECTION DATE 10:42 AM CDT [facility] STOOL SPECIMEN / Unknown 04/20/2023 10:23 AM CDT Benita Murray NP BODY FLUIDS AND STOOLS ORDER MARTY Final Result Performing Organization Address City/[facility] Co de Phone Number [facility] [address] [place] [address], * COLONOSCOPY GENERIC (12/23/2022) 12/23/2022 [facility] Scanned SCANNING Final Resu lt * MG DIAG W CASSANDRA RT DIGI (06/02/2022 2:33 PM CDT) Anatomical Region Laterality Modality Breast Right Mammography 06/02/2022 2:14 PM CDT Narrative 06/02/2022 3:44 PM CDT Examination: RIGHT DIGITAL DIAGNOSTIC MAMMOGRAM WITH TOMOSYNTHESIS [id number] Exam Date: 06/02/2022 1:47 PM Clinical Indication: Female 62 years of age presents for approximate 6 month follow-up in lieu of surgical excisional biopsy right 9:00 solid nodule yielding fibroadenoma with focus of ADH on pathology. Reports 40 pound weight loss since last mammogram. Additional Pertinent History: Atypical-benign right ultrasound biopsy with no subsequent surgical excision in 2021. History of colon cancer. Comparison: Post procedure mammogram and ultrasound biopsy imaging 11/30, bilateral diagnostic mammogram and right diagnostic ultrasound 11/30 (presumed baseline study) from [facility] in [place], [place] Technique: CC, MLO, multiple spot images. Tomosynthesis imaging acquisition. Study supplemented with computer aided detection program. Static sonographic grayscale images obtained supplemented with Doppler. Tissue density: The breast tissue is almost entirely fatty. Findings: Redemonstrated lateral mid mass with associated clip correlating with biopsy-proven fibroadenoma with atypia that was not surgically excised. Some nonspecific slight interval prominence with persistent irregular margins. Targeted sonographic evaluation of this performed. Interval developing adjacent right upper outer mid tiny subcentimeter nodule which persists with partial compressibility on spot CC view. On spot MLO views it is obscured and appears to demonstrate partial compressibility. Targeted ultrasound performed to further characterize. Ultrasound performed to further characterize. Scattered calcifications. Otherwise stable asymmetric parenchymal patches and nodular densities given differences in technique and interval weight loss. Examination: RIGHT BREAST ULTRASOUND Findings: Targeted sonographic reevaluation performed. The recent 9:00 biopsy-proven fibroadenoma with atypical focus reevaluated. On current study appears more heterogeneous and also has enlarged. Currently spans 16 x 8 x 11 mm, volume 0.47 mL. On preprocedural ultrasound this measured maximally 14 mm. Irregular margins again noted. Associated biopsy clip is suggested but not definitively identified sonographically. Some progressive differential acoustic shadowing. No definite internal vascularity. Labeled #2 is a fairly simple appearing cyst at 10:30/11:00 measuring 4 x 4 by 1 x 6 mm, volume 0.01 In the axilla there are fatty lymph nodes. However none of the lymph nodes with cortical thickening by criteria are demonstrated. IMPRESSION 1. Interval suspicious change and enlargement right 9:00 solid mass correlating with nonsurgically excised biopsy-proven fibroadenoma with atypia. Complete surgical excisional biopsy is now warranted. 2. Interval development tiny right 10 30-11 clock cyst. 3.Stable Additional stable and benign findings, detailed above. I discussed these findings and recommendations with the patient [id number] prior to departure from the department. My personal total patient encounter time was approximately 3 minutes. RECOMMENDATION: Surgical Biopsy Right JACKIE ASSESSMENT: ACR BI-RADS CATEGORY 4 - SUSPICIOUS FINDING(S) Ordered By: CHAU Cedillo MAI Interpreted By: Kimberli Woods MD, 06/02/2022 2:14 PM us Chau Cedillo Mai, MD MAMMO Final Result * (ABNORMAL) HPV GENOTYPES 16, 18/45 (01/04/2022 12:00 PM CDT) SPEC DESCRIPTION CERVICAL/END OCERVICAL 01/12/2022 5:25 AM CDT [facility] HPV 16 RNA POSITIVE(A) NEGATIVE 01/17/2022 3:02 PM CDT [facility] Comment:SEE CYTOLOGY REPORT HPV 18/45 RNA NEGATIVE NEGATIVE 01/17/2022 3:02 PM CDT [facility] Comment:SEE CYTOLOGY REPORT 01/04/2022 12:0 0 PM CDT us Zunilda Pillai MD PATHOLOGY/CYTOLOGY ORDERAB LES Final Result [facility] [address] [place] [address], * Cytopath Cerv/Vag Thin Layer (01/04/2022 8:15 AM CDT) THIN PREP PAP [facility] [address] [place] [address] Department of Pathology Pathology Report CERVICAL/VAGINAL PAP SMEAR REPORT Name: TEOFILO LALEN Age: 9 1960 (Age: 61) Location: [facility] Sex: F Collected Date: 01/04/2022 [facility] #: [id number] Date Received: 01/06/2022 Date Reported: 01/18/2022 Provider: ZUNILDA SPICER MD INTERPRETATION CERVICAL/ENDOCERVI ALLYN: SATISFACTORY FOR EVALUATION-PARTIAL LY OBSCURING FOREIGN MATERIAL CONSISTENT WITH LUBRICANT. ENDOCERVICAL/TRANS FORMATION ZONE COMPONENT PRESENT. NEGATIVE FOR INTRAEPITHELIAL LESION OR MALIGNANCY. POSITIVE FOR HIGH RISK HPV. The FDA approved Aptima HPV assay is an in vitro nucleic acid amplification test for the qualitative detection of E6/E7 viral messenger RNA (mRNA) from 14 high-risk types of human papillomavirus (HPV) in cervical specimens. The high-risk HPV types detected by the assay include: 16,18,31,33,35,39, 45,51,52,56,58,59, 66, and 68. RESULTS REFERENCE RANGE HPV 16 RNA DETECTED* (NOT DETECTED) HPV 18/45 RNA NOT DETECTED (NOT DETECTED) The FDA approved Aptima HPV 16,18/45 genotype assay is an in vitro nucleic acid amplification test for the qualitative detection of E6/E7 viral messenger RNA (mRNA) of human papillomavirus (HPV) types 16, 18, and 45 in cervical specimens from women with Aptima HPV assay positive results. The Aptima HPV 16, 18/45 genotype assay can differentiate HPV 16 from HPV 18 and/or HPV 45, but does not differentiate between HPV 18 and HPV 45. WARNING: This test is not intended for use in determining the need for treatment (i.e. excisional or ablative treatment of the cervix) in the absence of high-grade cervical intraepithelial neoplasia (FELICITA). Women who are HPV 16/18/45 positive should be monitored carefully for the development of high-grade FELICITA according to current practice guidelines. The Aptima HPV 16, 18/45 genotype assay is not intended for use as a stand-alone assay. The assay should be performed only as a follow-up to an Aptima HPV assay positive result, and should be interpreted in conjunction with cervical cytology test results. Electronically Signed Out HEATHER Randall (ASCP) CLINICAL HISTORY Z12.4 SCREENING PAP TEST ThinPrep Pap Test with screening HR HPV testing requested, with reflex HPV 16/18 genotyping on negative cytology, positive HR HPV Date of Last Menstrual Period: N/A Menstrual Status: Post-Menopausal SPECIMEN SUBMITTED CERVICAL/ENDOCERVI ALLYN Specimen Received:1 Thin Prep Vial, Image Assisted Pap (SMD) Please note: The Pap smear is not a diagnostic test. It is a screening test. Negative results on combined screening (Pap test and HPV-DNA) have a high negative predictive value (99.1-100 percent) for cervical cancer. The pap test is not effective in detecting cervical adenocarcinoma. [facility] 01/04/2022 8:15 AM CDT 01/06/2022 8:15 AM CDT Comment:CERVICAL/ENDOCERVICA L Zunilda Pillai MD PATHOLOGY/CYTOLOGY ORDERAB LES Final Result Performing Organization Address City/[facility]/ZIP Co de Phone Number [facility] [address] [place] [address], [place] [phone] * HEPATITIS C ANTIBODY (10/25/2021 11:45 AM RN DIABETES) HEPATITIS C AB NON-REACTI VE NON-REACT FLO 10/25/2021 6:25 PM RN DIABETES [facility] Comment: ANTIBODIES TO HCV NOT DETECTED. DOES NOT EXCLUDE THE POSSIBILITY OF EXPOSURE TO HCV. 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 [address] [place] [address] PCP - General Nurse Practitioner Family 01/09/23
--- OUTSIDE RECORDS SUMMARY | 2025-06-06 01:06 | XMS_ITS | Encounter Summary ---
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 [place], [place] [id number] PCP - General Nurse Practitioner Family 01/09/23 documented as of this encounter
--- OUTSIDE RECORDS SUMMARY | 2025-06-06 01:06 | XMS_ITS | Data Portability ---
Author Organization [facility], [address] [place] [address] ([place]) Address [address] 4[address] [place] [address] Care Team Providers Care Labor Employment Associate Name Role Phone CIARA MAYER Primary Care Provider Assessment Encounter Date Assessment Date Assessment LastModified by Organization Details LastModified Time 03/12/2025 03/12/2025 ONCOLOGY DIAGNOSES: 1. Stage II ascending colon adenocarcinoma-mo derately differentiated. pT4b pN0 pMx. Diagnosed in 11/2021. MSI stable. 2. Focal ADH of the right breast. S/p excision on 07/12/2023. Refused any risk reduction therapy. ACTIVE TREATMENT: On surveillance for colon malignancy. Next colonoscopy in December 2024. Last in December 2022, 2-year followup. ONCOLOGY HISTORY: Ms. Ac is a 64-year-old female who follows with us for moderately differentiated adenocarcinoma of the colon. She initially presented with significant iron deficiency anemia and colonoscopy revealed an ascending colon mass. She is s/p colectomy on 12/08/[address] Coy. Pathology revealed a 3.7 cm mass invading through muscularis propria, extending to the omentum. Resection margins negative, 0 of 24 lymph nodes positive for malignancy, without any LVI, perforation, or PNI. Adjuvant treatments were considered due to unfavorable feature with pT4b. However, patient refused any treatments and opted to continue with active surveillance. Signatera testing/circulati ng tumor DNA testing was 0.00% and has been since the time of surgery. She also had diagnostic mammogram abnormality which revealed an indeterminate right breast mass which showed fibroadenoma with focus of ADH. INTERVAL HISTORY: Today Malka returns for a regular 6-month follow-up visit. She was last seen by me at [facility] in 07/2024. She is taking care of her 90-year-old mother who recently had a hip fracture. She reports more tiredness and fatigue from it. She is finally improving and she is happy about it. Denied any blood in stools, dark black colored stools, change in her bowel habits. She was due for a colonoscopy in December 2024 when her mother had her hip fracture so this was on hold. She is hopefully going to get it in May. She gets it done at [facility]. We will obtain records. She denies any breast discomfort, nipple discharge. Her mother was also diagnosed with breast cancer just recently. REVIEW OF SYSTEMS: A 10-point review of systems is negative other than as stated above. Reviewed past medical history, surgical history, family history, social history. No changes except as noted. PAST MEDICAL HISTORY: Iron deficiency anemia, colon cancer. PAST SURGICAL HISTORY:Tonsillec kevin, right hemicolectomy as above. FAMILY HISTORY: Paternal grandfather with history of prostate cancer at age 94. Mother was recently diagnosed with breast cancer. SOCIAL HISTORY: She regularly exercises, is a vegan and grows her own food, and building her own house. Denied any alcohol use and she is a nonsmoker. She does not do any recreational drugs. PHYSICAL EXAMINATION: CONST: Overall is in usual health and no acute distress. ECOG performance status is 0. RESP: Chest clear to auscultation. Respirations even and unlabored. CV: Heart regular rate and rhythm without murmur. GI: Abdomen soft without mass, tenderness, or hernia. PSYCH: Appropriate mood and affect. NEURO: No speech difficulty. Alert and orientated to person, place, and time. Reviewed pertinent diagnostic tests, lab work, and imaging. These were reviewed with the patient. LAB DATA: 03/07/2025: -CBC: WBC 4.62, Hgb 13.0, MCV 96.6, plt 170, ANC 2.18, ALC 1.83. -CMP: Sodium 140, potassium 4.2, glucose 101, calcium 9.2, BUN 19, creatinine 0.95. -CEA: 0.3. ASSESSMENT AND PLAN: 1. Resected stage II ascending colon adenocarcinoma in 11/2021, currently under active surveillance. - Clinically stable. No symptoms suggestive of recurrent disease. Patient refuses CT scans. She usually gets a whole body scan in [place] ([place]). Reviewed the result copy that the patient shared with us today. Denied any acute changes. She continues to get the Signatera study. Since it is being approved, she prefers to continue getting it. - Colonoscopy pending May 2025. Obtain results. - MRI breast done as part of the whole body MRI showed no new changes. Encouraged her to also get an annual screening mammogram alternating with MRI. Patient refuses at this time. She is not interested in mammograms. - RTC in 1 year with repeat CBC, CMP, CEA levels, or sooner if needed. The patient verbalized understanding of plan of care and will call us sooner if needed with any questions or concerns. [email or web address] Not available 03/16/2025 18:01:00 Plan of Treatment Reminders Order Date Submit Date Provider Last Modified By Organization Details Last Modified Time Details Appointments Establish ed Patient 30.EST 2025 11:30A M Ashlyn Mera Not available Not available Not available Lab None recorded. Referral None recorded. Procedures None recorded. Surgeries None recorded. Imaging None recorded. Medication Orders None recorded. Patient TargetsNo targets recorded. Patient InstructionsNo instructions recorded. Reason for Referral None Reported. Results Created Date Observation Date Name Description Value Unit Range Abnormal Flag Note LastModifiedBy Organization Detail LastModifiedTime 05/30/20 24 06/04/2024 GASTR IC PARIE ROLLY CELL AB gastric parietal cell Ab <=20.0 normal Refer ence range : <=20. 0 Unit: Unit Refer ence Range : <= 20.0 Negat rock 20.1 - 24.9 Equiv ocal >= 25.0 Posit rock Anti- gastr ic parie rolly cell antib odies (Anti -GPA) were previ ously teste d for by indir ect immun ofluo resce nce (IF) using mouse stoma ch as a subst rate. Ident ifica tion of the speci fic antib victor hugo targe t as H+/K+ ATPas e prote in (a gastr ic kay n pump) has led to the devel opmen t of an IDRIS based assay . Antib odies to this prote in are prese nt in appro ximat ted 80% of patie nts with perni cious anemi a and a small perce ntage of gener al adult popul ation . The latte r perce ntage incre ases with age and may refle ct the prese nce of atrop hic gastr itis. A negat rock test does not exclu de a diagn osis of perni cious anemi a. A test for intri nsic facto r block ing antib victor hugo (IFab ) may provi de serol ogica l evide nce in suppo rt of the diagn osis in some of these patie nts. Test Perfo rmed by Joyce Zamorano, [facility], [address] [facility] , [place], [place] Wilman Christianson M.D., Ph.D. , [facility] of [facility] atori es , CLIA [id number] Not Available Ri Only - [address], [address], 06/13/2024 11:09:14 05/30/20 24 05/30/2024 MISCE LLANE OUS TEST test code and name of test GLYNNDEDhaval GONZALEZ PERTUS SIS TOXIN AB MAID TEST [id number] normal Not Available Replaced By [facility] [address] [place], [address], 06/13/2024 11:08:35 05/30/20 24 05/30/2024 MISCE LLANE OUS TEST specimen type/source/ volume SERUM FRZ normal Not Available Replaced By [facility] [address] [place], [address], 06/13/2024 11:08:35 05/30/20 24 06/04/2024 MISCE LLANE OUS TEST test result Flexit est 1 normal Flexi test 1 ----- ----- ----T ESTS- ----- ----- --RES ULTS- ----- --UNI TS--R EF. RANGE --- B. PERTU SSIS Ab (IgG) 5 IU/mL B. PERTU SSIS Ab (IgA) <1 IU/mL REFER ENCE RANGE : Age (year s) (IU/m L) IgG: < or = 10 <6 6 11-59 <43 > or = 60 <32 IgA: <40 <5 > or = 40 <8 This assay canno t be used to asses s prote ctive immun ity to pertu ssis becau se the speci fic antib odies and antib victor hugo level s that corre late with prote ction have not been well defin ed. The prima ry inten t of the assay is to aid in the diagn osis of infec tion follo wing natur al expos ure to Borde tella pertu ssis. The indic ated refer ence range s refle ct the 90th perce ntile of antib victor hugo level s in sera from healt hy child eh and blood donor s; thus, antib victor hugo level s above the refer ence range sugge st recen t infec tion or vacci natio n withi n the last few month s. Detec tion of PT IgG is more sensi tive than detec tion of PT IgA, since not all infec isaac or recen tly-v accin ated indiv idual s mount a detec table PT IgA respo nse. This test was devel oped and its erika tical perfo rmanc e ashkan cteri stics have been deter mined by [employer] [facility]. It has not been clear ed or appro val by FDA. This assay has been valid ated pursu ant to the CLIA regul ation s and is used for clini nima purpo ses. For addit ional infor dhiraj n, pledawson e refer to http: //[facility] catanastasiia n.que stdia gnost ics.c om/fa q/FAQ 209. (This link is being provi ded for infor matanastasiia nal/ educa lary l purpo ses only. ) Test perfo rmed by [facility] [id number] [facility] [place] [address] Phone : [phone] Medic al Direc tor: Ruby swartz MD,PH D,YAZMIN Test Repor isaac by [facility], [facility], [address] [facility] , [facility], [place] Wilman Christianson M.D., Ph.D. , [facility] tor of Labor atori es , CLIA [id number] Not Available Ri Only - [facility] [address] [place], [address], 06/13/2024 11:08:35 05/30/2005/30/2024 MISCE LLANE OUS TEST test code and name of test GLYNNDET LISA PERTUS SIS TOXIN AB MAID TEST [id number] normal Not Available Ri Only - [facility] [address] [place], [address], 06/04/2024 21:46:04 05/30/20 24 05/30/2024 MISCE LLANE OUS TEST specimen type/source/ volume SERUM FRZ normal Not Available Ri Only - [facility] [address] [place], [address], 06/04/2024 21:46:04 05/30/2006/04/2024 MISCE LLANE OUS TEST test result Flexit est 1 normal Flexi test 1 ----- ----- ----T ESTS- ----- ----- --RES ULTS- ----- --UNI TS--R EF. RANGE --- B. PERTU SSIS Ab (IgG) 5 IU/mL B. PERTU SSIS Ab (IgA) <1 IU/mL REFER ENCE RANGE : Age (year s) (IU/m L) IgG: < or = 10 <6 6 11-59 <43 > or = 60 <32 IgA: <40 <5 > or = 40 <8 This assay canno t be used to asses s prote ctive immun ity to pertu ssis becau se the speci fic antib odies and antib victor hugo level s that corre late with prote ction have not been well defin ed. The prima ry inten t of the assay is to aid in the diagn osis of infec tion follo wing natur al expos ure to Borde tellsamaria pertu ssis. The indic ated refer ence range s refle ct the 90th perce ntile of antib victor hugo level s in sera from healt hy child eh and blood donor s; thus, antib victor hugo level s above the refer ence range sugge st recen t infec tion or vacci natio n withi n the last few month s. Detec tion of PT IgG is more sensi tive than detec tion of PT IgA, since not all infec isaac or recen tly-v accin ated indiv idual s mount a detec table PT IgA respo nse. This test was devel oped and its erika tical perfo rmanc e ashkan cteri stics have been deter mined by [facility]. It has not been clear ed or appro val by FDA. This assay has been valid ated pursu ant to the CLIA regul ation s and is used for clini nima purpo ses. For addit ional infor tracy lara e refer to http: //[facility] catanastasiia n.que stdia gnost ics.c om/fa q/FAQ 209. (This link is being provi ded for infor dhiraj abel/ educa lary l purpo ses only. ) Test perfo rmed by [facility] [address] [place] [address] Phone : [phone] Medic al Direc tor: Ruby swartz MD,PH D,YAZMIN Test Repor isaac by [facility], [facility], [address] [facility] , [facility] [place], [place] Wilman Christianson M.D., Ph.D. , [facility]c tor of Labor atori es [phone], CLIA [id number] Not Available Ri Only - [facility] [address] [place], [address], 06/04/2024 21:46:04 05/30/20 24 06/04/2024 GASTR IC PARIE ROLLY CELL AB gastric parietal cell Ab <=20.0 normal Refer ence range : <=20. 0 Unit: Unit Refer ence Range : <= 20.0 Negat rock 20.1 - 24.9 Equiv ocal >= 25.0 Posit rock Anti- gastr ic parie rolly cell antib odies (Anti -GPA) were previ ously teste d for by indir ect immun ofluo resce nce (IF) using mouse stoma ch as a subst rate. Ident ifica tion of the speci fic antib victor hugo targe t as H+/K+ ATPas e prote in (a gastr ic kay n pump) has led to the devel opmen t of an IDRIS based assay . Antib odies to this prote in are prese nt in appro ximat ted 80% of patie nts with perni cious anemi a and a small perce ntage of gener al adult popul ation . The latte r perce ntage incre ases with age and may refle ct the prese nce of atrop hic gastr itis. A negat rock test does not exclu de a diagn osis of perni cious anemi a. A test for intri nsic facto r block ing antib victor hugo (IFab ) may provi de serol ogica l evide nce in suppo rt of the diagn osis in some of these patie nts. Test Perfo rmed by Joyce Zamorano, [facility], [address] [facility] , [place], [place] Wilman Christianson M.D., Ph.D. , [facility]c tor of Labor atori es , CLIA [id number] Not Available Ri Only - [facility] [address] [place], [address], 06/04/2024 14:08:45 05/30/20 24 05/30/2024 CEA cea 0.6 NG/mL 0.0-5. 0 normal ASSAY PERFO RMED BY CHEMI LUMIN ESCEN CE METHO DOLOG Y USING SIEME NS DIMEN TK VISTA REAGE NT. PATIE NT RESUL TS DETER MINED BY ASSAY S USING DIFFE RENT NALINIF ACTUR ERS FOR METHO DS MAY NOT BE AMBER ROSIO . Not Available Ri Only - [address], [address], 05/30/2024 17:00:49 05/30/20 24 05/30/2024 COMP METAB OLIC PANEL sodium 137 mmol/ L 136-14 5 normal Not Available Ri Only - [address], [address], 05/30/2024 11:18:04 05/30/20 24 05/30/2024 COMP METAB OLIC PANEL potassium 4.0 mmol/ L 3.5-5. 1 normal Not Available Ri Only - [address], [address], 05/30/2024 11:18:04 05/30/20 24 05/30/2024 COMP METAB OLIC PANEL chloride 107 mmol/ L 97-115 normal Not Available Ri Only - [address], [address], 05/30/2024 11:18:04 05/30/20 24 05/30/2024 COMP METAB OLIC PANEL total CO2 28.5 mmol/ L 21.0-3 2.0 normal Not Available Ri Only - [address], [address], 05/30/2024 11:18:04 05/30/20 24 05/30/2024 COMP METAB OLIC PANEL glucose 110 mg/dL 74-106 high Not Available Ri Only - [address], [address], 05/30/2024 11:18:04 05/30/20 24 05/30/2024 COMP METAB OLIC PANEL BUN 20 mg/dL 7-18 high Not Available Ri Only - [address], [address], 05/30/2024 11:18:04 05/30/20 24 05/30/2024 COMP METAB OLIC PANEL creatinine 0.91 mg/dL 0.55-1 .02 normal Not Available Ri Only - [address], [address], 05/30/2024 11:18:04 05/30/20 24 05/30/2024 COMP METAB OLIC PANEL calcium 9.7 mg/dL 8.5-10 .1 normal Not Available Ri Only - [address], [address], 05/30/2024 11:18:04 05/30/20 24 05/30/2024 COMP METAB OLIC PANEL total bilirubin 0.6 mg/dL 0.2-1. 0 normal Not Available Ri Only - [address], [address], 05/30/2024 11:18:04 05/30/20 24 05/30/2024 COMP METAB OLIC PANEL alk phosphatase 76 U/L 50-130 normal Not Available Ri O nly - [address], [address], 05/30/2024 11:18:04 05/30/20 24 05/30/2024 COMP METAB OLIC PANEL AST 14 U/L 15-37 low Not Available Ri Only - [address], [address], 05/30/2024 11:18:04 05/30/20 24 05/30/2024 COMP METAB OLIC PANEL ALT 17 U/L 13-56 normal Not Available Ri Only - [address], [address], 05/30/2024 11:18:04 05/30/20 24 05/30/2024 COMP METAB OLIC PANEL total protein 7.4 g/dL 6.4-8. 2 normal Not Available Sc Only - [facility] [address] [place], [address], 05/30/2024 11:18:04 05/30/20 24 05/30/2024 COMP METAB OLIC PANEL albumin 4.2 g/dL 3.4-5. 0 normal Not Available Sc Only - [facility] [address] [place], [address], 05/30/2024 11:18:04 05/30/20 24 05/30/2024 COMP METAB OLIC PANEL anion gap 1.5 mmol/ L 2.0-10 .0 low Not Available Sc Only - [facility] [address] [place], [address], 05/30/2024 11:18:04 05/30/20 24 05/30/2024 COMP METAB OLIC PANEL osmolality calc 287 mOsm/ kg normal REFER ENCE RANGE NOT ESTAB LISHE D Not Available Sc Only - [facility] [address] [place], [address], 05/30/2024 11:18:04 05/30/20 24 05/30/2024 COMP METAB OLIC PANEL est GFR 71 mL/mi n/1.7 3_M2 >90 low Not Available Sc Only - [address], [address], 05/30/2024 11:18:04 05/30/20 24 05/30/2024 COMP METAB OLIC PANEL GFR notes GFR REFERE NCES: normal THE ESTIM ATED GFR IS CALCU LATED USING THE 2020 CKD-E PI EQUAT ION. THE FOLLO WING CATEG ORIES FOR GRADI NG RENAL FUNCT ION ARE RECOM ANGIE D BY THE INTER NATIO NAL SOCIE TY OF NEPHR OLOGY (KDIG O 2011 CLINI NIMA PRACT ICE GUIDE LINE) . G1,NO RMAL OR HIGH: >89 ml/mi n/1.7 3 m2 G2,SC LDLY DECRE ASED: 60-89 ml/mi n/1.7 3 m2 G3A,M ILDLY TO MODER ATELY DECRE ASED: 45-59 ml/mi n/1.7 3 m2 G3B,M ODERA TELY TO SEVER TED DECRE ASED: 30-44 ml/mi n/1.7 3 m2 G4,SE VEREL Y DECRE ASED: 15-29 ml/mi n/1.7 3 m2 G5,KI DNEY FAILU RE: <15 ml/mi n/1.7 3 m2 Not Available Ri Only - [facility] [address] [place], [address], 05/30/2024 11:18:04 05/30/20 24 05/30/2024 CBC WITH DIFF WBC 4.36 x10'3 /uL 4.00-1 0.80 normal Not Available Ri Only - [facility] [address] [place], [address], 05/30/2024 10:31:31 05/30/20 24 05/30/2024 CBC WITH DIFF RBC 4.40 x10'6 /uL 4.10-5 .40 normal Not Available Ri Only - [facility] [address] [place], [address], 05/30/2024 10:31:31 05/30/20 24 05/30/2024 CBC WITH DIFF hemoglobin 13.9 g/dL 12.0-1 6.0 normal Not Available Ri Only - [facility] [address] [place], [address], 05/30/2024 10:31:31 05/30/20 24 05/30/2024 CBC WITH DIFF hematocrit 43.0 % 36.0-4 7.0 normal Not Available Ri Only - [facility] [address] [place], [address], 05/30/2024 10:31:31 05/30/20 24 05/30/2024 CBC WITH DIFF MCV 97.7 fL 78.0-1 00.0 normal Not Available Ri Only - [facility] [address] [place], [address], 05/30/2024 10:31:31 05/30/20 24 05/30/2024 CBC WITH DIFF MCH 31.6 pg 27.0-3 1.0 high Not Available Ri Only - [facility] [address] [place], [address], 05/30/2024 10:31:31 05/30/20 24 05/30/2024 CBC WITH DIFF MCHC 32.3 g/dL 33.0-3 6.0 low Not Available Ri Only - [facility] [address] [place], [address], 05/30/2024 10:31:31 05/30/20 24 05/30/2024 CBC WITH DIFF RDW 12.0 % 11.5-1 4.5 normal Not Available Ri Only - [facility] [address] [place], [address], 05/30/2024 10:31:31 05/30/20 24 05/30/2024 CBC WITH DIFF platelet count 181 x10'3 /uL 150-35 0 normal Not Available Ri Only - [facility] [address] [place], [address], 05/30/2024 10:31:31 05/30/20 24 05/30/2024 CBC WITH DIFF MPV 11.0 fL 7.4-10 .4 high Not Available Ri Only - [facility] [address] [place], [address], 05/30/2024 10:31:31 05/30/20 24 05/30/2024 CBC WITH DIFF diff type AUTOMA ISAAC DIFFER ENTIAL normal Not Available Ri Only - [facility] [address] [place], [address], 05/30/2024 10:31:31 05/30/20 24 05/30/2024 CBC WITH DIFF neutrophils 45.0 % normal Not Available Ri Onl y - [facility] [address] [place], [address], 05/30/2024 10:31:31 05/30/20 24 05/30/2024 CBC WITH DIFF lymphocytes 40.1 % normal Not Available [facility] [address] [place], [address], 05/30/2024 10:31:31 05/30/20 24 05/30/2024 CBC WITH DIFF monocytes 9.9 % normal Not Available Ri Only - [facility] [address] [place], [address], 05/30/2024 10:31:31 05/30/20 24 05/30/2024 CBC WITH DIFF eosinophils 3.2 % normal Not Available [facility] [address] [place], [address], 05/30/2024 10:31:31 05/30/20 24 05/30/2024 CBC WITH DIFF basophils 1.8 % normal Not Available Ri Only - [address], [address], 05/30/2024 10:31:31 05/30/20 24 05/30/2024 CBC WITH DIFF immature granulocytes 0.0 % normal Not Available Ri Only - [address], [address], 05/30/2024 10:31:31 05/30/20 24 05/30/2024 CBC WITH DIFF abs. neutrophils 1.96 x10'3 /uL 1.60-8 .30 normal Not Available Ri Only - [address], [address], 05/30/2024 10:31:31 05/30/20 24 05/30/2024 CBC WITH DIFF abs. lymphocytes 1.75 x10'3 /uL 0.80-4 .70 normal Not Available Ri Only - [address], [address], 05/30/2024 10:31:31 05/30/20 24 05/30/2024 CBC WITH DIFF abs. monocytes 0.43 x10'3 /uL 0.00-1 .50 normal Not Available Ri Only - [facility] [address] [place], [address], 05/30/2024 10:31:31 05/30/20 24 05/30/2024 CBC WITH DIFF abs. eosinophils 0.14 x10'3 /uL 0.00-0 .40 normal Not Available Ri Only - [facility] [address] [place], [address], 05/30/2024 10:31:31 05/30/20 24 05/30/2024 CBC WITH DIFF abs. basophils 0.08 x10'3 /uL 0.00-0 .20 normal Not Available Ri Only - [address], [address], 05/30/2024 10:31:31 05/30/20 24 05/30/2024 CBC WITH DIFF abs. immature grans 0.00 x10'3 /uL 0.00-0 .03 normal Not Available Ri Only - [address], [address], 05/30/2024 10:31:31 05/30/20 24 05/30/2024 CBC WITH DIFF absolute NRBCs 0.00 x10'3 /uL 0.00-0 .01 normal Not Available Ri Only - [address], [address], 05/30/2024 10:31:31 05/30/20 24 05/30/2024 CBC WITH DIFF NRBC's 0.0 % normal Not Available Ri Only - [address], [address], 05/30/2024 10:31:31 01/09/20 25 01/08/2025 REFER ENCE LAB TEST test name NETERA ATERA ONCOLO GY normal Not Available Ri Only - [facility] [address] [place], [address], 01/09/2025 08:55:23 01/09/20 25 01/09/2025 REFER ENCE LAB TEST reference lab [facility] normal Not Available Ri Only - [facility] [address] [place], [address], 01/09/2025 08:55:23 01/09/20 25 01/09/2025 REFER ENCE LAB TEST result RESULT S SENT DIRECT LY TO BRANDI GALLAGHER FROM [facility]. normal Not Available Ri Only - [facility] [address] [place], [address], 01/09/2025 08:55:23 03/07/20 25 03/07/2025 COMP METAB OLIC PANEL sodium 140 mmol/ L 136-14 5 normal Not Available Ri Only - [facility] [address] [place], [address], 03/07/2025 13:10:36 03/07/20 25 03/07/2025 COMP METAB OLIC PANEL potassium 4.2 mmol/ L 3.5-5. 1 normal Not Available Ri Only - [facility] [address] [place], [address], 03/07/2025 13:10:36 03/07/20 25 03/07/2025 COMP METAB OLIC PANEL chloride 107 mmol/ L 97-115 normal Not Available Ri Only - [facility] [address] [place], [address], 03/07/2025 13:10:36 03/07/20 25 03/07/2025 COMP METAB OLIC PANEL total CO2 30.0 mmol/ L 21.0-3 2.0 normal Not Available Ri Only - [facility] [address] [place], [address], 03/07/2025 13:10:36 03/07/20 25 03/07/2025 COMP METAB OLIC PANEL glucose 101 mg/dL 74-106 normal Not Available Ri Only - [facility] [address] [place], [address], 03/07/2025 13:10:36 03/07/20 25 03/07/2025 COMP METAB OLIC PANEL BUN 19 mg/dL 7-18 high Not Available Ri Only - [facility] [address] [place], [address], 03/07/2025 13:10:36 03/07/20 25 03/07/2025 COMP METAB OLIC PANEL creatinine 0.95 mg/dL 0.55-1 .02 normal Not Available Ri Only - [facility] [address] [place], [address], 03/07/2025 13:10:36 03/07/20 25 03/07/2025 COMP METAB OLIC PANEL calcium 9.2 mg/dL 8.5-10 .1 normal Not Available Ri Only - [facility] [address] [place], [address], 03/07/2025 13:10:36 03/07/20 25 03/07/2025 COMP METAB OLIC PANEL total bilirubin 0.7 mg/dL 0.2-1. 0 normal Not Available Ri Only - [facility] [address] [place], [address], 03/07/2025 13:10:36 03/07/20 25 03/07/2025 COMP METAB OLIC PANEL alk phosphatase 74 U/L 50-130 normal Not Available Ri O nly - [facility] [address] [place], [address], 03/07/2025 13:10:36 03/07/20 25 03/07/2025 COMP METAB OLIC PANEL AST 16 U/L 15-37 normal Not Available Ri Only - [facility] [address] [place], [address], 03/07/2025 13:10:36 03/07/20 25 03/07/2025 COMP METAB OLIC PANEL ALT 21 U/L 13-56 normal Not Available Ri Only - [address], [address], 03/07/2025 13:10:36 03/07/20 25 03/07/2025 COMP METAB OLIC PANEL total protein 7.0 g/dL 6.4-8. 2 normal Not Available Ri Only - [address], [address], 03/07/2025 13:10:36 03/07/20 25 03/07/2025 COMP METAB OLIC PANEL albumin 4.0 g/dL 3.4-5. 0 normal Not Available Ri Only - [address], [address], 03/07/2025 13:10:36 03/07/20 25 03/07/2025 COMP METAB OLIC PANEL anion gap 3.0 mmol/ L 2.0-10 .0 normal Not Available Ri Only - [address], [address], 03/07/2025 13:10:36 03/07/20 25 03/07/2025 COMP METAB OLIC PANEL osmolality calc 292 mOsm/ kg normal REFER ENCE RANGE NOT ESTAB LISHE D Not Available Replaced By [facility] - [address], [address], 03/07/2025 13:10:36 03/07/20 25 03/07/2025 COMP METAB OLIC PANEL est GFR 68 mL/mi n/1.7 3_M2 >90 low Not Available [address], [address], 03/07/2025 13:10:36 03/07/20 25 03/07/2025 COMP METAB OLIC PANEL GFR notes GFR REFERE NCES: normal THE ESTIM ATED GFR IS CALCU LATED USING THE 2020 CKD-E PI EQUAT ION. THE FOLLO WING CATEG ORIES FOR GRADI NG RENAL FUNCT ION ARE RECOM ANGIE D BY THE INTER NATIO NAL SOCIE TY OF NEPHR OLOGY (KDIG O 2011 CLINI NIMA PRACT ICE GUIDE LINE) . G1,NO RMAL OR HIGH: >89 ml/mi n/1.7 3 m2 G2,SC LDLY DECRE ASED: 60-89 ml/mi n/1.7 3 m2 G3A,M ILDLY TO MODER ATELY DECRE ASED: 45-59 ml/mi n/1.7 3 m2 G3B,M ODERA TELY TO SEVER TED DECRE ASED: 30-44 ml/mi n/1.7 3 m2 G4,SE VEREL Y DECRE ASED: 15-29 ml/mi n/1.7 3 m2 G5,KI DNEY FAILU RE: <15 ml/mi n/1.7 3 m2 Not Available Sc Only - [address], [address], 03/07/2025 13:10:36 03/07/20 25 03/07/2025 CEA cea 0.3 NG/mL 0.0-5. 0 normal ASSAY PERFO RMED BY CHEMI LUMIN ESCEN CE METHO DOLOG Y USING SIEME NS DIMEN TK VISTA REAGE NT. PATIE NT RESUL TS DETER MINED BY ASSAY S USING DIFFE RENT MANUF ACTUR ERS FOR METHO DS MAY NOT BE AMBER RABLE . Not Available Sc Only - [address], [address], 03/07/2025 13:10:31 03/07/20 25 03/07/2025 CBC WITH DIFF WBC 4.62 x10'3 /uL 4.00-1 0.80 normal Not Available Sc Only - [facility] [address] [place], [address], 03/07/2025 11:56:45 03/07/20 25 03/07/2025 CBC WITH DIFF RBC 4.13 x10'6 /uL 4.10-5 .40 normal Not Available Sc Only - [facility] [address] [place], [address], 03/07/2025 11:56:45 03/07/20 25 03/07/2025 CBC WITH DIFF hemoglobin 13.0 g/dL 12.0-1 6.0 normal Not Available Ri Only - [address], [address], 03/07/2025 11:56:45 03/07/20 25 03/07/2025 CBC WITH DIFF hematocrit 39.9 % 36.0-4 7.0 normal Not Available Ri Only - [address], [address], 03/07/2025 11:56:45 03/07/20 25 03/07/2025 CBC WITH DIFF MCV 96.6 fL 78.0-1 00.0 normal Not Available Ri Only - [address], [address], 03/07/2025 11:56:45 03/07/20 25 03/07/2025 CBC WITH DIFF MCH 31.5 pg 27.0-3 1.0 high Not Available Ri Only - [address], [address], 03/07/2025 11:56:45 03/07/20 25 03/07/2025 CBC WITH DIFF MCHC 32.6 g/dL 33.0-3 6.0 low Not Available Ri Only - [address], [address], 03/07/2025 11:56:45 03/07/20 25 03/07/2025 CBC WITH DIFF RDW 11.9 % 11.5-1 4.5 normal Not Available Ri Only - [address], [address], 03/07/2025 11:56:45 03/07/20 25 03/07/2025 CBC WITH DIFF platelet count 170 x10'3 /uL 150-35 0 normal Not Available Ri Only - [facility] [address] [place], [address], 03/07/2025 11:56:45 03/07/20 25 03/07/2025 CBC WITH DIFF MPV 11.3 fL 7.4-10 .4 high Not Available Ri Only - [facility] [address] [place], [address], 03/07/2025 11:56:45 03/07/20 25 03/07/2025 CBC WITH DIFF diff type AUTOMA ISAAC DIFFER ENTIAL normal Not Available Ri Only - [facility] [address] [place], [address], 03/07/2025 11:56:45 03/07/20 25 03/07/2025 CBC WITH DIFF neutrophils 47.3 % normal Not Available [facility] [address] [place], [address], 03/07/2025 11:56:45 03/07/20 25 03/07/2025 CBC WITH DIFF lymphocytes 39.6 % normal Not Available [facility] [address] [place], [address], 03/07/2025 11:56:45 03/07/20 25 03/07/2025 CBC WITH DIFF monocytes 8.4 % normal Not Available Ri Only - [facility] [address] [place], [address], 03/07/2025 11:56:45 03/07/20 25 03/07/2025 CBC WITH DIFF eosinophils 3.0 % normal Not Available [facility] [address] [place], [address], 03/07/2025 11:56:45 03/07/20 25 03/07/2025 CBC WITH DIFF basophils 1.5 % normal Not Available Ri Only - [facility] [address] [place], [address], 03/07/2025 11:56:45 03/07/20 25 03/07/2025 CBC WITH DIFF immature granulocytes 0.2 % normal Not Available Ri Only - [address], [address], 03/07/2025 11:56:45 03/07/20 25 03/07/2025 CBC WITH DIFF abs. neutrophils 2.18 x10'3 /uL 1.60-8 .30 normal Not Available Ri Only - [address], [address], 03/07/2025 11:56:45 03/07/20 25 03/07/2025 CBC WITH DIFF abs. lymphocytes 1.83 x10'3 /uL 0.80-4 .70 normal Not Available Ri Only - [address], [address], 03/07/2025 11:56:45 03/07/20 25 03/07/2025 CBC WITH DIFF abs. monocytes 0.39 x10'3 /uL 0.00-1 .50 normal Not Available Ri Only - [address], [address], 03/07/2025 11:56:45 03/07/20 25 03/07/2025 CBC WITH DIFF abs. eosinophils 0.14 x10'3 /uL 0.00-0 .40 normal Not Available Ri Only - [address], [address], 03/07/2025 11:56:45 03/07/20 25 03/07/2025 CBC WITH DIFF abs. basophils 0.07 x10'3 /uL 0.00-0 .20 normal Not Available Ri Only - [address], [address], 03/07/2025 11:56:45 03/07/20 25 03/07/2025 CBC WITH DIFF abs. immature grans 0.01 x10'3 /uL 0.00-0 .03 normal Not Available Sc Only - [facility] [address] [place], [address], 03/07/2025 11:56:45 03/07/20 25 03/07/2025 CBC WITH DIFF absolute NRBCs 0.00 x10'3 /uL 0.00-0 .01 normal Not Available Sc Only - [facility] [address] [place], [address], 03/07/2025 11:56:45 03/07/20 25 03/07/2025 CBC WITH DIFF NRBC's 0.0 % normal Not Available Sc Only - [facility] [address] [place], [address], 03/07/2025 11:56:45 01/08/20 25 06/02/2022 imagi ng/di agnos tic resul t No observ ation record ed. [email or web address] Not Available 03:24:22 01/08/20 25 06/02/2022 imagi ng/di agnos tic resul t No observ ation record ed. [email or web address] Not Available 03:24:23 03/27/20 25 01/04/2025 MRI, whole body, w/o contr ast No observ ation record ed. [email or web address] Not Available 03/28 07:10:41 Result Notes None recorded. 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 Medical Equipment None Reported. Medications Name Sig Start Date Stop Date Status Note LastModified by Organization Details LastModified Time BD Regular Bevel Sedley 27 gauge x 1/2 active Not Available Not Availa ble Not Available levothyroxine active Not Available Not Available Not Available liothyronine active Not Available Not Available Not Available BD Integra Syringe 3 mL 25 gauge x 1 active Not Available Not Available N ot Available BD Eclipse Luer-Mor 3 mL 23 x 1 syringe active Not Available Not Availa ble Not Available Vitals Date Recorded Heart rate Oxygen saturation Oxygen saturation in Arterial blood by Pulse oximetry Pain severity - 0-10 verbal numeric rating [Score] - Reported Heart rate Respiratory rate Body temperature Body weight Systolic And Diastolic Provider Name and Address Organization Details Last Updated DateTime 5 67 /min 96 % 96 % 0 67 /min 18 /min 97.78 [degF] 54917.7 4 g 124/72 mm[Hg] Leatha Mims [facility] 5 12:49:01 Social History None recorded. Functional Status None recorded. Mental Status None recorded. Family History Nothing Reported. Medical History No medical history recorded. Gynecological HistoryNo gynecological history recorded. Obstetrics History GPAL:G 0 P 0 0 0 0 Immunizations Vaccine Type Date Status Note Provider Nam e and Address Organization Details Recorded Time COVID-19, mRNA, LNP-S, PF, 30 mcg/0.3 mL dose 12/02/2020 completed Leatha Prasanna null, [facility] 03/12/2025 12:49:50 Hep A, adult 10/09/2002 completed Leatha Prasanna null, [facility] 03/12/2025 12:49:50 Hep A, adult 10/24/2003 completed Leatha Prasanna null, [facility] 03/12/2025 12:49:50 Hep A, adult 02/24/2003 completed Leatha Prasanna null, [facility] 03/12/2025 12:49:50 Past Encounters Encounter ID Performer Location Encounter Start Date Encounter Closed Date Diagnosis/Indication Diagnosis SNOMED-CT Code Diagnosis ICD10 Code Diagnosis IMO Codes Diagnosis Note [id number] DALIA SEVILLA MD [facility] [place] 4th Derm ([place]) [address] [place] [address] 05/09/2024 11:35:31 05/09/2024 13:02:54 Lentigo - freckle 730855352 L81.4 Lentigines (Sun damaged skin)The benign nature of these spots was reviewed with the patient, but that they do indicate a history of sun-damage . We discussed that they should be watched for change, and are related to chronic sun exposure.W e discussed the importance of UV protection and its role in the aid of prevention of sun damage and skin cancers. Advised the patient on daily sunscreen use, use of wide brimmed hats, and other protective measures. Multiple b enign melanocytic nevi 496902033 D22.9 Multiple melanocyti c nevi of trunk and extremitie sThe patient was reassured of benign exam today. We discussed the need to call if there are any concerning changes in the color, size, shape, or symptoms of the lesions, or if certain lesions begin to stand out as being different from the rest ( u gly duckling sign ). Hemangioma 630983012 D18 .00 Casiano Angioma, numerousBe nign nature of the lesions discussed with the patient. No treatment needed. Seborrheic keratosis 394 916107 L82.1 Seborrheic keratoses, Few- Discussed benign etiology. Reassuranc e provided. No treatment required. [id number] Nelly Ware MD [address] 4[address] Oncology/ Hematolog y (MD) [address] [place] [address] 03/12/2025 12:32:37 03/12/2025 13:09:41 Malignant colorectal neoplasm 4632316557 C19 23756 Health Concerns Section Related Observation LastModified by Organization Detai ls LastModified Time None Recorded Concern Status LastModified by Organization Details LastModified Time None Recorded Advance Directives Directive None Recorded Payers Insurance Date Sequence Insurance Name Policy Number Policy Rock Covered Member ID Rock Member ID Guarantor Name 03/13/2024 1 *SELF PAY* Da jacey Flores Bardusch 04/07/2025 1 WEST - [place]WEST () Malka Houstoneney Bardusch [id number] Malka Flores Bardusch 03/16/2025 1 EAST - [place]MANA () Malka Quiroga Bardusch [id number] Malka Flores Bardusch Notes Date Note Type Note Provider Name and Address Organization Details Recorded Time 4 text/html ROS as noted in the HPI Malka is here as a new patient. They have no history of skin cancer. Here today for a total body skin exam.Concerned by a spot on the right shinto and left shoulder. The spot on left shoulder occasionally itches and has been present for 30 years.Patient has hx of colon cancer. DALIA SEVILLA MD [address] [place] [address], [phone], [facility] 05/09/2024 12:06:39 5 text/html MD Oncology QuestionnaireReported by [facility] Oncology QuestionnaireFor are you currently using any alternative therapies, patient reportsnone. For fully active; no restrictions, patient reportsyes. For minimal activity/work restrictions, patient reportsno. For able to perform all self care but no work activities; up about >50% of the day, patient reportsno. For limited self-care; in bed/chair > 50% of the day, patient reportsno. For unable to perform self-care; confined to bed/chair, patient reportsno. For any physical health complaints today, patient reportsno. Nelly Ware MD [address] [facility], [place], [address], [facility] 03/16/2025 18:01:09 OBGyn Episode No OBEpisode recorded.
--- OUTSIDE RECORDS SUMMARY | 2025-06-06 01:06 | XMS_ITS | Encounter Summary ---
Author Organization [facility] Address [facility] [place] [address] Care Team Providers Care Nut Blanker Operator Name Role Phone Benita Murray CLOTH MEASURER Primary Care Provider + [phone] Encounter Details Date Type Department Care Team (Late st Contact Info) Description 01/10/2024 Zlio Message Enc [facility] 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
--- OUTSIDE RECORDS SUMMARY | 2025-06-06 01:06 | XMS_ITS | Encounter Summary ---
Author Organization [facility] Address [facility] [place] [address] Care Team Providers Care Bd Special Education Teacher Name Role Phone Benita Murray NP Primary Care Provider + [phone] Encounter Details Date Type Department Care Team (Late st Contact Info) Description 05/29/2024 ZENT Message Enc [facility] Family & Internal Medicine [address] [address] [place]ita Murray [place] [address] [place] [address] [address]. 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 I copied the rest of this message into the other message. documented in this encounter Plan of Treatment Not on file documented as of this encounter Visit Diagnoses Not on filedocumented in this encounter Care Teams Bd Special Education Teacher Relationship Specialty Start Date End Date Benita Murray, CARDIOVASCULAR SURGICAL TECH [address] [address] [place] [phone] PCP - General Nurse Practitioner Family 01/09/23 documented as of this encounter
--- OUTSIDE RECORDS SUMMARY | 2025-06-06 01:06 | XMS_ITS | Encounter Summary ---
Author Organization [facility] Address [facility] [place] [address] Care Team Providers Care Curtain Stitcher Name Role Phone Benita Murray NP Primary Care Provider + [phone] Encounter Details Date Type Department Care Team (Late st Contact Info) Description 06/06/2024 SurfAir Message Enc [facility] Medical Group Family & Internal Medicine [facility] [address] [place] [phone] [place] [id number] [place] [address] [address]. 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 I sent you a message last week regarding this. Thank you! documented in this encounter Plan of Treatment Not on file documented as of this encounter Visit Diagnoses Not on filedocumented in this encounter Care Teams Curtain Stitcher Relationship Specialty Start Date End Date Benita Murray, DENNISE [address] [facility] [address] [place] [address] PCP - General Nurse Practitioner Family 01/09/23 documented as of this encounter
--- OUTSIDE RECORDS SUMMARY | 2025-06-06 01:06 | XMS_ITS | Encounter Summary ---
Author Organization [facility] Address [facility] [place] [address] Care Team Providers Care Boat Assembler Name Role Phone Benita Murray NP Primary Care Provider + [phone] Encounter Details Date Type Department Care Team (Latest Contact Info) Description 05/29/2024 Etaoshi Message Enc [facility] Medical Group Family & Internal Medicine [facility] [address] [place] [phone] [place] [address] [facility] [address] 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 Her functional medicine provider should have the capability to sent a fax order in if she has been managing her treatment and agrees with continuing. * Selam Bryan MA - 05/29/2024 2:12 PM CDT See below * Selam Bryan MA - 05/29/2024 1:41 PM CDT I have added the additional message from patient. I do not see where we have ever tested vitamin B12 and B6. I tried to look through her medical records to see who was taking care of this. What I read in her chart is that she is doing this on her own accord? I am not actually sure if she is using this for detox? * Selam Bryan MA - 05/29/2024 1:41 PM CDT Images from the original note were not included. Benita Rae Nurse (supporting Benita Murray NP)10 minutes ago (1:31 PM) Sorry, I had too many characters. The Quantity depends on how many they have in stock before the expiration date. I try for 10 to save on shipping costs. Once we get established with the original script from you , they will fax you for refill requests. It???s up to you , but the more refills you put The less faxing back and forth. Since I go thru 2 of each medicine a week it goes fast. Thank you again. Malka Ac documented in this encounter Plan of Treatment Not on file documented as of this encounter Visit Diagnoses Not on filedocumented in this encounter Care Teams Boat Assembler Relationship Specialty [place] [address] [facility] [address] [place] [address] PCP - General Nurse Practitioner Family 01/09/23 documented as of this encounter
--- OUTSIDE RECORDS SUMMARY | 2025-06-06 01:06 | XMS_ITS | Encounter Summary ---
Author Organization [facility] Address [facility] [place] [address] Care Team Providers Care Ham Clerk Name Role Phone Benita Murray NP Primary Care Provider [phone] Encounter Details Date Type Department Care Team (Late st Contact Info) Description 06/28/2023 Platypus TV Message Enc [facility] 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
[2025-06-06 09:22] VITALS: BP 149/80; PULSE 78; RESP 18; TEMP 36.5; O2SAT 100
[2025-06-06] MEDS: LACTATED RINGERS 1,000 ML 150 ML IV CONT (09:30)
--- NOTE | 2025-06-06 09:59 | P.PNAN_ITS ---
Anes - Initial Pre Proc Eval Procedure: Operation Date: 06/06/25 10:30 Proposed Procedures p Screening Colonoscopy - Moose Felix MD Date/Time: 06/06/25 09:59 Surgeon: Moose Felix MD Pre Op Diagnosis: Encounter for screening for malignant neoplasm of Patient Data Age: 65 Gender: F Height: 1.68 m Weight: 71.1 kg Last Vital Signs Temp 36.5 C 06/06/25 09:22 Pulse 78 06/06/25 09:22 Resp 18 06/06/25 09:22 BP 149/80 H 06/06/25 09:22 Pulse Ox 100 06/06/25 09:22 O2 Del Method Room Air 06/06/25 09:22 Allergies Allergy/AdvReac Type Severity Reaction Status Date / Time No Known Allergies Allergy Verified 06/06/25 09:19 Home Medications ?Medication ?Instructions ?Recorded ?Confirmed ?Type melatonin 10 mg tablet 40 mg PO QHS 06/07/22 History magnesium chelate, malate 600 mg PO BID 06/17/2206/06 History turmeric 400 mg capsule 800 mg PO TID 06/17/2206/06 History zinc acetate 25 mg (zinc) capsule 25 mg PO DAILY 06/1706/06/25 History acidophilus 25 million 2 tablet PO HS 09/14/2205/13 History cell-pectin, citrus 100 mg tablet omega-3 fatty acids 2,000 mg PO DAILY 09/14/22 0 06/06/25 History vitamin A 7,500 mcg (25,000 unit) 25,000 cap PO DAILY 09/14/22 06/06/25 History capsule levothyroxine 50 mcg tablet 40 mcg PO DAILY 01/31/25 0 06/06/25 History (Euthyrox) liothyronine 5 mcg tablet (Cytomel) 10 mcg PO DAILY 06/06/25 History Patient hx anesthesia problems: none Family hx anesthesia problems: none Results Review: All pre-operative results and documents have been reviewed as part of the pre- operative evaluation. [facility], [facility] Past Medical History Medical History Fungal infection of lung Hypothyroidism Left adrenal mass Perianal fistula Cancer of ascending colon Anemia Cluster headache Surgical History Surgical History H/O hemicolectomy ALEJANDRO R HEMICOLECTOMY 12/08/21 S/P tonsillectomy Family History Family History Father Heart attack Grandparent Malignant neoplasm of prostate Social History Social History Smoking status: Never smoker Alcohol intake: never Substance use: never Substance use type: does not use Living arrangements: with family Additional living arrangements comments: with sp Occupation/Education: retired Spiritual care concerns: No Anes - Eval Final PreProcedure Day of Procedure 06/06/25 09:59 Patient weight: normal Heart: regular rate and rhythm Lungs: decreased breath sounds Airway: Mallampati scale class II Neurological: alert and oriented Last oral intake: >/= 8 hours ASA classification: III Emergent: no Anesthetic plan: proceed Anesthesia type and monitoring: general GIVS and standard monitoring Results Review: All pre-operative results and documents have been reviewed as part of the pre- operative evaluation. Informed Consent: The patient's anesthetic plan and its attendant risks and benefits were dis cussed with the patient/family/POA. Questions were solicited and answers provided to the satisfaction of the patient/family/POA.
--- NOTE | 2025-06-06 10:08 | PM.HPGS ---
History of Present Illness History of Present Illness Consent: Risks, benefits, and alternatives have been discussed and questions answered. Patient agrees to proceed with procedure. Chief complaint: Encounter for screening for malignant neoplasm of Narrative: Malka Ac is a 65 year old female with history of colon cancer s/p surgery, last colonoscopy 2022 Review of Systems Review of Systems: All systems reviewed & are unremarkable except as noted in HPI and below PMFSH Past Medical History Medical History Fungal infection of lung Hypothyroidism Left adrenal mass Perianal fistula Cancer of ascending colon Anemia Cluster headache Surgical History Surgical History H/O hemicolectomy ALEJANDRO R HEMICOLECTOMY 12/08/21 S/P tonsillectomy Family History Family History Father Heart attack Grandparent Malignant neoplasm of prostate Social History Social History Smoking status: Never smoker Alcohol intake: never Substance use: never Substance use type: does not use Living arrangements: with family Additional living arrangements comments: with sp Occupation/Education: retired Spiritual care concerns: No Meds Home Medications and Allergies Home Medications ?Medication ?Instructions ?Recorded ?Confirmed ?Type melatonin 10 mg tablet 40 mg PO QHS 06/07/22 06/06/25 History magnesium chelate, malate 600 mg PO BID 06/17/22 06/06/25 History turmeric 400 mg capsule 800 mg PO TID 06/17/22 06/06/25 History zinc acetate 25 mg (zinc) capsule 25 mg PO DAILY 06/17/22 06/06/25 History acidophilus 25 million 2 tablet PO HS 09/14/22 06/06/25 History cell-pectin, citrus 100 mg tablet omega-3 fatty acids 2,000 mg PO DAILY 09/14/22 06/06/25 History vitamin A 7,500 mcg (25,000 unit) 25,000 cap PO DAILY 09/14/22 06/06/25 History capsule levothyroxine 50 mcg tablet 40 mcg PO DAILY 01/31/25 06/06/25 History (Euthyrox) liothyronine 5 mcg tablet (Cytomel) 10 mcg PO DAILY 01/31/25 06/06/25 History Allergies Allergy/AdvReac Type Severity Reaction Status Date / Time No Known Allergies Allergy Verified 06/06/25 09:19 Vital Signs Vital Signs - 24 hr 06/06/25 09:22 Temperature 97.7 F Pulse Rate 78 Respiratory Rate 18 Blood Pressure 149/80 H Pulse Oximetry 100 Oxygen Delivery Room Air Exam Const: General: comfortable and no acute distress HENMT: Face/Nose/Sinus: Normal nares present Eyes: General: appearance normal, both eyes and all related structures Resp: Auscultation: clear to auscultation bilaterally Cardio: Rate: regular rate Rhythm: regular rhythm GI: Inspection: non-distended GI Palp: Yes Soft to palpation Skin: General skin exam: normal color Neuro: Speech: normal speech Extrem: General: normal to inspection Psych: Mental Status: mental status grossly normal Assessment and Plan Assessment and plan (1) History of colon cancer: Code(s): Z85.038 - Personal history of other malignant neoplasm of large intestine Status: Acute Assessment and Plan: colonoscopy
[2025-06-06 10:24] VITALS: BP 119/60; PULSE 63; RESP 20; O2SAT 100
[2025-06-06 10:34] VITALS: BP 119/69; PULSE 69; RESP 22; O2SAT 100
[2025-06-06 10:44] VITALS: BP 112/64; PULSE 73; RESP 23; O2SAT 100
== END 2025-06-06 10:55 | disposition home or self-care (01) ==
PROVIDERS: PCP Nurse Practitioner Family; Visit Provider Internal Medicine Gastroenterology
PROC: 0DJD8ZZ Inspection of Lower Intestinal Tract, Via Natural or Artificial Opening Endoscopic (ICD-10-PCS; CPT 45378; principal; 2025-06-06 10:30)
DX: Z12.11 Encounter for screening for malignant neoplasm of colon (principal); K64.8 Other hemorrhoids; E03.9 Hypothyroidism, unspecified; D64.9 Anemia, unspecified; Z98.890 Other specified postprocedural states; Z98.0 Intestinal bypass and anastomosis status; Z90.49 Acquired absence of other specified parts of digestive tract; Z85.038 Personal history of other malignant neoplasm of large intestine; Z87.19 Personal history of other diseases of the digestive system; Z80.42 Family history of malignant neoplasm of prostate; Z82.49 Family history of ischemic heart disease and other diseases of the circulatory system
CPT/HCPCS: 45378; J2003; J2704; J7120